=== PATIENT | female | born 1965 | race Caucasian/White ===

== ENCOUNTER 2019-03-30 09:12 | Outpatient (CLI) | payer BC, SELFPAY | END 2019-03-30 09:13 | disposition home or self-care (01) | LOC: ANHAUDIO 09:14 | PROVIDERS: PCP Family Medicine; Visit Provider Otolaryngology | DX: H93.19 Tinnitus, unspecified ear (principal) | CPT/HCPCS: 92552; 92556; 92567 ==

== ENCOUNTER 2022-01-25 02:44 | Emergency (ER) | payer BC, SELFPAY ==
--- NOTE | ~2022-01-25 | CT_ITS ---
EXAMINATION: CT brain wo con DATE: 01/25/2022 04:06 INDICATION: Dizziness. TECHNIQUE: Computed tomography (CT) of the head was performed without intravenous contrast. The dose- length product was 605.33 mGy-cm. Automated exposure control and iterative reconstruction technique w ere employed. COMPARISON: CT dated 01/25/2022 FINDINGS: No acute intracranial hemorrhage, infarction, mass or mass effect. No ventriculomegaly or m idline shift. Basilar cisterns are patent. Paranasal sinuses and mastoids are pneumatized. No depress ed skull fractures. IMPRESSION: 1. No acute intracranial abnormality. Reviewed, dictated and finalized at location A. PMENT OPERATOR/LABORER
--- NOTE | ~2022-01-25 | XR_ITS ---
XR chest 1V portable 01/25/2022 04:01 Indication: Dizziness. Procedure: AP portable chest Comparison: No prior studies for comparison. Findings: Cardiomegaly. Mild pulmonary vascular congestion. No focal pneumonia, effusion or pneumotho rax. There is a Bruce carlita overlying the spine. No acute osseous abnormality. Impression: 1: Cardiomegaly with mild pulmonary vascular congestion. Reviewed, dictated and finalized at location A. ARCH AND DEVELOPMENT TECHNICIAN Impression: 1: Cardiomegaly with mild pulmonary vascular congestion.
[2022-01-25 02:42] VITALS: BP 145/87; PULSE 87; RESP 18; TEMP 37.1; O2SAT 93
--- NOTE | 2022-01-25 02:53 | ED.DIZZY ---
HPI - Dizziness General Chief Complaint: Dizziness Stated Complaint: DIZZINESS Source: RN notes reviewed History of Present Illness HPI Narrative: Patient presents emergency department from home for dizziness. Patient states dizziness began approximately 8 PM this evening. States that it feels like the room is spinning. States the dizziness had improved and then worsened again. States is associate with nausea and vomiting. Patient states that dizziness is improved when her eyes are closed and is worse when she tries to get up and moves her head she denies any numbness or tingling in the extremities she denies any headache she denies any fevers or chills or any other symptoms. States he has not take anything for the symptoms Related Data Home Medications Medication Instructions Recorded Confirmed hydrochlorothiazide 25 mg tablet 25 mg PO DAILY 06/28/21 potassium chloride 20 mEq 20 meq PO DAILY 06/28/21 tablet,extended release Allergies Allergy/AdvReac Type Severity Reaction Status Date / Time No Known Allergies Allergy Verified 01/25/22 02:48 Review of Systems Review of Systems: Gen.: Denies fevers or chills Eyes: Denies eye pain or visual change ENT: Denies congestion Respiratory: Denies shortness of breath or cough CV: Denies chest pain or palpitations GI: Denies abdominal pain or diarrhea. Reports nausea and vomiting Musculoskeletal: Denies back pain or muscle pain Neuro: See HPI Skin: Denies rash Except as documented, all other systems reviewed and negative [facility] Past Medical History Medical History HTN (hypertension) Surgical History Surgical History History of cholecystectomy Family History Family History (Updated 06/28/21 @ 10:24 by Fernanda Yang MA) Other Diabetes mellitus Heart disease High cholesterol Hypertension Social History Social History Smoking status: Never smoker Alcohol intake: never Substance use: never Substance use type: does not use Gender identity (if verbalized by the patient): Female Exam Narrative: APPEARANCE: No acute distress, nontoxic, resting in bed HEENT: Normocephalic, atraumatic, OMM, TMs clear bilaterally EYES: PERRL, EOMI NECK: Supple, nontender, full range of motion without pain, no meningismus RESPIRATORY: No respiratory distress, clear to auscultation bilaterally with no rhonchi wheezing or rales CARDIOVASCULAR: RRR s murmur ABDOMINAL: Soft, nontender, nondistended MUSCULOSKELETAL: Moves all extremities. No clubbing, cyanosis or edema. NEURO: A and O ?3, following commands, speech normal, no facial droop,muscle strength 5 out of 5 bilateral upper and lower extremities, dizziness increased with movement of the head bilaterally SKIN:: Warm, dry. Normal Color PSYCHIATRIC: Normal affect/mood Course Course Emergency Course: Patient states she is feeling much better this time dizziness is resolved able to get up and ambulate in ED with no difficulty Discussed with patient results of workup and diagnosis. Discussed need for follow-up with primary care, proper use of medication, and reasons to return to the emergency department. Patient understands and agrees to current treatment plan Vital Signs Vital signs: Vital Signs Temperature 98.7 F 01/25/22 02:42 Pulse Rate 87 01/25/22 02:42 Respiratory Rate 18 01/25/22 02:42 Blood Pressure 145/87 H 01/25/22 02:42 Pulse Oximetry 93 01/25/22 02:42 Oxygen Delivery Room Air 01/25/22 02:42 Temperature 98.7 F 01/25/22 02:42 Pulse Rate 100 01/25/22 04:25 Respiratory Rate 18 01/25/22 02:42 Blood Pressure 140/96 H 01/25/22 04:25 Pulse Oximetry 93 01/25/22 02:42 Oxygen Delivery Room Air 01/25/22 02:42 MDM - Dizziness MDM Narrative Medical decision making narrative: Patient's vertigo is felt to be
[2022-01-25 03:05] LABS: Basophils Absolute Auto 0.1 K/mm3 (0.0-0.1); Basophils Percent Auto 0.6 % (0.2-1.2); Eosinophils Absolute Auto 0.1 K/mm3 (0-0.3); Eosinophils Percent Auto 0.8 % (0-4.4); Hematocrit 41.9 % (37.0-47.0); Hemoglobin 14.5 g/dL (12.0-15.0); Immature Granulocyte Absolute 0.03 K/mm3 (0.00-0.031); Immature Granulocyte Percent A 0.3 % (0-0.5); Lymphocytes Absolute Auto 1.27 K/mm3 (0.9-3.2); Lymphocytes Percent Auto 13.1 % (18.3-44.2); Mean Corpuscular HGB Conc 34.6 g/dl (32-36); Mean Corpuscular Hemoglobin 31.6 pg (26-34); Mean Corpuscular Volume 91.3 fl (80-100); Mean Platelet Volume 8.9 fl (7.4-10.4); Monocytes Absolute Auto 0.8 K/mm3 (0.1-0.6); Monocytes Percent Auto 7.8 % (2.6-8.5); Neutrophils Absolute Auto 7.5 K/mm3 (1.3-6.7); Neutrophils Percent Auto 77.4 % (45.5-73.1); Platelet Count Result 343 k/mm3 (150-375); Red Blood Count 4.59 M/mm3 (4.2-5.4); Red Cell Distribution Width 12.6 % (11.5-14.5); White Blood Count 9.7 K/mm3 (4.5-10.0)
[2022-01-25] MEDS: SODIUM CHLORIDE 0.9% IV 1,000 ML 999 ML IV CONT (03:06)
[2022-01-25] MEDS: MECLIZINE HCL 25 MG TABLET PO (03:06)
[2022-01-25 03:17] LABS: Alanine Aminotransferase 25 U/L (6-35); Albumin Level 4.1 g/dL (3.5-5.1); Alkaline Phosphatase 73 U/L (38-126); Anion Gap 9 mmol/L (8-16); Aspartate Amino Transferase 45 U/L (14-36); Bilirubin,Total 0.6 mg/dL (0.2-1.3); Blood Urea Nitrogen 12 mg/dL (7-17); Calcium 8.8 mg/dL (8.4-10.2); Carbon Dioxide 28 mmol/L (22-30); Chloride 99 mmol/L (98-107); Estimated CRCL calculation 115 ml/min; Estimated Glomerular Filt Rate > 60; Glucose 156 mg/dL (65-110); Potassium 3.3 mmol/L (3.4-5.0); Sodium 136 mmol/L (137-145)
[2022-01-25 03:29] LABS: Troponin I < 0.012 ng/mL (0.000-0.034)
[2022-01-25 04:25] VITALS: BP 140/96; BP 154/89; PULSE 100
[2022-01-25 04:32] LABS: Appearance Urine Clear (Clear); Bilirubin Urine Negative (Negative); Blood Urine 1+ (Negative); Color Urine Yellow (Yellow); Glucose Urine UA Negative (Negative); Ketones Urine Negative (Negative); Leukocyte Esterase Ur Trace LEU/UL (Negative); Nitrate Urine Negative (Negative); Protein Urine Negative (Negative); Specific Grav Ur 1.015 (1.001-1.035); Urobilinogen Urine 0.2 mg/dL (<2.0); pH Urine 6.5 (5.0-9.0)
[2022-01-25 04:41] LABS: Squamous Epithelial Cell Urine Rare /hpf (Few)
[2022-01-25 04:46] LABS: Add Urine Microscopic? YES
[2022-01-25] MEDS: POTASSIUM CHLORIDE 20 MEQ TABLET PO (06:36)
--- NOTE | 2022-01-25 14:52 | ECG_ITS ---
Measurements Intervals [place] Rate: 86 P: 18 WA: 168 QRS: 12 QRSD: 93 T: -2 QT: 378 QTc: 455 Interpretive Statements SINUS RHYTHM MINIMAL VOLTAGE CRITERIA FOR LVH, CONSIDER NORMAL VARIANT [MEETS CRITERIA IN ONE OF: R(aVL), S(V1), R(V5), R(V5/V6)+S(V1)] NONSPECIFIC T-WAVE ABNORMALITY NO PREVIOUS ECG AVAILABLE FOR COMPARISON Electronically Signed On 01-28-2022 15:16:39 STARS ANALYTICAL LEAD by Ellie Olmstead M.D.
== END 2022-01-25 07:01 | disposition home or self-care (01) ==
PROVIDERS: Emergency Provider Emergency Medicine; PCP Family Medicine
DX: R42 Dizziness and giddiness (principal); I10 Essential (primary) hypertension; R94.31 Abnormal electrocardiogram [ECG] [EKG]
CPT/HCPCS: 36415; 70450; 71045; 80053; 81001; 84484; 85025; 93005; 96360; 99284; A9270; J7030

== ENCOUNTER 2022-04-04 12:14 | Outpatient (CLI) | payer OTHER, SELFPAY ==
[2022-04-04 14:39] LABS: Hematocrit 44.7 % (37.0-47.0); Hemoglobin 14.9 g/dL (12.0-15.0)
[2022-04-04 14:51] LABS: Anion Gap 9 mmol/L (8-16); Blood Urea Nitrogen 11 mg/dL (7-17); Calcium 8.8 mg/dL (8.4-10.2); Carbon Dioxide 32 mmol/L (22-30); Chloride 98 mmol/L (98-107); Estimated Glomerular Filt Rate > 60; Glucose 166 mg/dL (65-110); Potassium 3.6 mmol/L (3.4-5.0); Sodium 139 mmol/L (137-145)
== END 2022-04-04 12:15 | disposition home or self-care (01) ==
PROVIDERS: Anesthesiology; PCP Family Medicine; Visit Provider Student in an Organized Health Care Education/Training Program
DX: Z01.818 Encounter for other preprocedural examination (principal); N95.0 Postmenopausal bleeding; Z79.899 Other long term (current) drug therapy
CPT/HCPCS: 36415; 80048; 85014; 85018

== ENCOUNTER 2022-04-11 02:13 | Day surgery (SDC) | payer OTHER, SELFPAY ==
[2022-03-31 15:48] VITALS: BMI 48.0
--- NOTE | 2022-03-31 15:54 | PC.NURSE ---
Report to the Outpatient Waiting Room, entrance under the green pavilion located off [facility], at time 9:45 on date 04/11/22. Planned Procedure Time: 11:45. Time changes happen often and if your time is changed the preop area will call you the afternoon before. - You and your visitor will be asked to self-screen and do not enter if you have any COVID symptoms. - Only one visitor is requested with a max of two and NO children visitors are allowed at this time. - The patient visitor may be requested to leave or wait in car when not with patient due to distancing restrictions. - A mask is optional within the hospital at this time. Patients may have clear liquids (water, carbonated beverages, clear teas, apple juice) until 3 hours prior to surgery (8:45) with a maximum of 20 ounces. - No food from midnight until time of surgery Take the following medications with a SIP of water the morning of surgery: NONE DO NOT STOP ANY OF YOUR OTHER PRESCRIPTION MEDICATIONS PRIOR TO SURGERY EXCEPT THE FOLLOWING Medications to discontinue per physician: VITAMINS/SUPPLEMENTS Date to take last dose: 04/07/22 Please no make-up, nail cameroonian, hairspray, perfume, deodorant, or body powder the day of surgery. No jewelry (including any body piercings) or valuables the day of surgery, leave them at home. Please take a shower or bath the night before, or the morning of, surgery with an antibacterial soap. Wear comfortable, loose fitting clothing. - Jewelry must be removed prior to entering the operating room. Rings and piercings that are not removed may be cut off. - The hospital will not accept responsibility for valuables. - Please leave all valuables, including medications, at home the day of surgery. If you are going home after surgery, a licensed driver education instructor must drive you home. - NO public transportation without another adult if you receive anesthesia. - We recommend that an adult stay with you for 24 hours following discharge. - We also recommend that you do not drive, make important decision, drink alcoholic beverages, or take any drugs that were not prescribed by your health care provider for at least 24 hours after your discharge time. Follow any additional instructions given to you from your surgeon. If you or anyone in your household have experienced Covid symptoms in the past week, please notify your surgeon or the nurse liaison at the phone number below for possible testing. Telephone instructions given to DEBRA MAYA and asked if any additional questions and then verbalized understanding. Patient advised to call surgeon office or pre surgery nurse liaison [phone] if any additional questions.
[2022-04-11 09:52] VITALS: BP 146/89; PULSE 92; RESP 20; TEMP 36.2; O2SAT 97
--- NOTE | 2022-04-11 10:12 | PM.IMHP ---
H&P: HPI History of Present Illness Date/Time: 04/11/22 10:12 Chief Complaint: postmenopausal bleeding Narrative: ?56-year-old female who presents for postmenopausal bleeding.? Patient reports a history of heavy bleeding.? Patient was placed on oral contraceptive pills in her late 40s.? Patient was? advised to stop her OCPs in her early 50s.? Patient states she? eventually stopped having periods.? patient states that last June she was seen by Dr. Ivan for recurrence of postmenopausal bleeding.? Patient had a pelvic ultrasound done at [facility] that showed an inhomogenous an enlarged endometrial complex.? ? Patient was scheduled to undergo hysteroscopy D&C but had insurance coverage issues.? Patient now has new insurance would like to proceed with D&C. Patient states she continues to have very light sporadic pink spotting. Review of Systems Cardiovascular: Cardiovascular: Denies chest pain, Denies leg edema, Denies palpitations, Denies dyspnea and Denies dyspnea on exertion Respiratory: Respiratory: Denies cough, Denies dyspnea and Denies dyspnea on exertion Gastrointestinal: Gastrointestinal: Denies abdominal pain, Denies constipation, Denies diarrhea, Denies nausea and Denies vomiting Genitourinary: Genitourinary: Denies hematuria, Denies urinary frequency, Denies dysuria, Denies pelvic pain, Denies urinary incontinence and Denies vaginal discharge Neurologic: Reports system reviewed and no additional complaints, except as documented Psychiatric: Psychiatric: Reports no additional psychiatric complaints Endocrine: Endocrine: Denies palpitations PMFSH Past Medical History Medical History HTN (hypertension) Surgical History Surgical History History of cholecystectomy Family History Family History Other Diabetes mellitus Heart disease High cholesterol Hypertension Social History Social History Smoking status: Never smoker Alcohol intake: never Substance use: never Substance use type: does not use Living arrangements: with family Additional living arrangements comments: DAD Occupation/Education: occupation Gender identity (if verbalized by the patient): Female Spiritual care concerns: No Meds Home Medications and Allergies Home Medications Medication Instructions Recorded Confirmed Type hydrochlorothiazide 25 mg tablet 25 mg PO DAILY 06/28/21 04/11/22 History potassium chloride 20 mEq 20 meq PO DAILY 06/28/21 04/11/22 History tablet,extended release meclizine 12.5 mg tablet 12.5 mg PO TID PRN dizziness #10 01/25/22 04/11/22 Rx tabs cholecalciferol (vitamin D3) 125 125 mcg PO DAILY 03/31/22 04/11/22 History mcg (5,000 unit) tablet (Vitamin D3) ergocalciferol (vitamin D2) 1,250 1,250 mcg PO WEEKLY 03/31/22 04/11/22 History mcg (50,000 unit) capsule Allergies Allergy/AdvReac Type Severity Reaction Status Date / Time No Known Allergies Allergy Verified 04/11/22 10:03 Vital Signs Vital Signs - 24 hr 04/11/22 09:52 Temperature 97.1 F L Pulse Rate 92 Respiratory Rate 20 Blood Pressure 146/89 H Pulse Oximetry 97 Oxygen Delivery Room Air Exam Const: General: no acute distress Eyes: EOM: EOMs intact bilaterally Neck: Neck: supple Thyroid: thyroid normal Chest: Breast/axilla inspection: normal inspection of the breasts Breast/axilla palpation: normal palpation of the breasts, normal palpation of the axillae and no axillary lymphadenopathy Resp: Effort & Inspection: normal respiratory effort Auscultation: clear to auscultation bilaterally Cardio: Rate: regular rate Rhythm: regular rhythm GI: Inspection: non-distended GI Palp: Yes Soft to palpation, No Tenderness to palpation present (GI) and No Guarding due to palpation pre
--- NOTE | 2022-04-11 10:13 | WPDHPUPDATE1 ---
History and Physical Update Update Date/Time: 04/11/22 10:13 History and Physical has been reviewed, including an updated exam of the patient. There are NO changes in the patient's condition. Risks, benefits, and alternatives have been discussed and questions answered. Patient agrees to proceed with procedure.
[2022-04-11] MEDS: ACETAMINOPHEN 500 MG TABLET 1000 MG PO (10:16)
[2022-04-11] MEDS: LACTATED RINGERS 1,000 ML 30 ML IV CONT ×2 (10:16→12:22)
--- NOTE | 2022-04-11 11:18 | WPDANESEPPF ---
Anes - Initial Pre Proc Eval Procedure: Operation Date: 04/11/22 11:45 Proposed Procedures p Hysteroscopy, Dilation and Curettage - Chalino York MD Date/Time: 04/11/22 11:18 Surgeon: Chalino York MD Pre Op Diagnosis: Post Menopausal Bleeding Patient Data Age: 57 Gender: F Height: 1.63 m Weight: 128.8 kg Last Vital Signs Temp 36.2 C L 04/11/22 09:52 Pulse 92 04/11/22 09:52 Resp 20 04/11/22 09:52 BP 146/89 H 04/11/22 09:52 Pulse Ox 97 04/11/22 09:52 O2 Del Method Room Air 04/11/22 09:52 Allergies Allergy/AdvReac Type Severity Reaction Status Date / Time No Known Allergies Allergy Verified 04/11/22 10:03 Home Medications Medication Instructions Recorded Confirmed Type hydrochlorothiazide 25 mg tablet 25 mg PO DAILY 06/28/21 04/11/22 History potassium chloride 20 mEq 20 meq PO DAILY 06/28/21 04/11/22 History tablet,extended release meclizine 12.5 mg tablet 12.5 mg PO TID PRN dizziness #10 01/25/22 04/11/22 Rx tabs cholecalciferol (vitamin D3) 125 125 mcg PO DAILY 03/31/22 04/11/22 History mcg (5,000 unit) tablet (Vitamin D3) ergocalciferol (vitamin D2) 1,250 1,250 mcg PO WEEKLY 03/31/22 04/11/22 History mcg (50,000 unit) capsule Patient hx anesthesia problems: none Family hx anesthesia problems: none Results Review: All pre-operative results and documents have been reviewed as part of the pre-operative evaluation. [facility] Past Medical History Medical History (Updated 04/11/22 @ 11:18 by Moncho Srivastava MD) HTN (hypertension) Morbid obesity Surgical History Surgical History History of cholecystectomy Family History Family History Other Diabetes mellitus Heart disease High cholesterol Hypertension Social History Social History Smoking status: Never smoker Alcohol intake: never Substance use: never Substance use type: does not use Living arrangements: with family Additional living arrangements comments: DAD Occupation/Education: occupation Gender identity (if verbalized by the patient): Female Spiritual care concerns: No Anes - Eval Final PreProcedure Day of Procedure 04/11/22 11:18 Patient weight: morbidly obese Heart: regular rate and rhythm Lungs: clear to auscultation Airway: Mallampati scale class II Neurological: alert and oriented Last oral intake: >/= 8 hours ASA classification: III Emergent: no Anesthesia type and monitoring: general GIVS and standard monitoring Results Review: All pre-operative results and documents have been reviewed as part of the pre-operative evaluation. Informed Consent: The patient's anesthetic plan and its attendant risks and benefits were discussed with the patient/family/POA. Questions were solicited and answers provided to the satisfaction of the patient/family/POA.
[2022-04-11] MEDS: LIDOCAINE HCL 1% LOCAL INJ 20 ML VIAL 10 ML INFILTRATE (12:01)
--- NOTE | 2022-04-11 12:18 | W.PM.PROC2 ---
Procedure Note - Detailed Date of Procedure 04/11/22 Pre-op Diagnosis Post Menopausal Bleeding thickened endometrium Post-op Diagnosis Same Procedure Performed paracervical block hysteroscopy dilation & curettage Surgeon Chalino York MD Anesthesia General Indications postmenopausal bleeding and thickened endometrium Findings Thickened endometrium globally, possible endometrial polyp Description of Procedure Luda Leija presents for the above procedure. She was counseled as to the indications, risks, benefits, and alternatives to surgery, with the risks including bleeding, infection, damage to surrounding organs, VTE, and complications of anesthesia. Her verbal and written consent was obtained. PROCEDURE: The patient was taken to the OR and general anesthesia induced. She was prepped and draped in Matheus stirrups with support of the back and bilateral lower extremities. I/O catheterization performed of the bladder. The above findings were noted. Infiltration with 1% lidocaine at the 3 and 9 o'clock cervical positions was performed. A single tooth tenaculum was placed on the anterior lip of the cervix. The cervix was dilated with sequential Alis dilators. Hysteroscopy, using a normal saline medium, was performed and showed the above findings. The endometrial lining was visualized and a globally thickened endometrium was found with abnormal growth of the lining. The Myosure device was then used to remove the tissue and sample the endometrial lining, restoring a normal appearing endometrial cavity. The tissue was sent to pathology. Sharp uterine curettage was then performed and tissue placed on Telfa. The tenaculum was removed and hemostasis was observed. The patient tolerated the procedure well. Sponge, lap, and needle counts were correct. The patient was taken to the recovery room in stable condition. Estimated Blood Loss 5 Urine Output 50 Drains No Packing No Pathology Yes (endometrial curettings ) Complications No immediate complications Condition Stable Disposition PACU [facility] Billing Surgery - Charge Forward: Surgery Billing
[2022-04-11 12:22] VITALS: BP 126/78; PULSE 91; RESP 16; O2SAT 94
[2022-04-11 12:50] VITALS: BP 144/81; PULSE 82; RESP 16; O2SAT 98
[2022-04-11 13:15] VITALS: BP 121/72; PULSE 70; RESP 16
== END 2022-04-11 13:28 | disposition home or self-care (01) ==
PROVIDERS: PCP Family Medicine; Visit Provider Student in an Organized Health Care Education/Training Program
PROC: 0U5B8ZZ Destruction of Endometrium, Via Natural or Artificial Opening Endoscopic (ICD-10-PCS; CPT 58563; principal; 2022-04-11 11:45)
DX: C54.1 Malignant neoplasm of endometrium (principal); N95.0 Postmenopausal bleeding; I10 Essential (primary) hypertension; E66.01 Morbid (severe) obesity due to excess calories; Z68.42 Body mass index [BMI] 45.0-49.9, adult
CPT/HCPCS: 58558; 88305; A9270; J2250; J2704; J3010; J7030; J7120

== ENCOUNTER 2023-03-25 00:26 | Day surgery (SDC) | payer OTHER, SELFPAY ==
[2023-03-16 09:54] VITALS: BMI 47.2
--- NOTE | 2023-03-23 12:52 | SUR.PREOP ---
Patient called regarding upcoming procedure. Pt updated on arrival date and time. All questions answered.
[2023-03-25 12:29] VITALS: BP 148/82; PULSE 82; RESP 20; TEMP 36.3; O2SAT 97
[2023-03-25] MEDS: LACTATED RINGERS 1,000 ML 150 ML IV CONT (12:40)
--- NOTE | 2023-03-25 12:41 | PM.HPGS ---
History of Present Illness History of Present Illness Consent: Risks, benefits, and alternatives have been discussed and questions answered. Patient agrees to proceed with procedure. Chief complaint: neoplasm screening Narrative: Luda Leija is a 58 year old female here for screening colonoscopy, last one 7 years ago Review of Systems Constitutional: Constitutional: Denies headache(s) and Denies weakness Eyes: Eyes: Denies blurry vision ENT: Reports Normal hearing present, Denies headache(s) and Denies neck pain Cardiovascular: Cardiovascular: Denies chest pain and Denies dyspnea Respiratory: Respiratory: Denies dyspnea Gastrointestinal: Gastrointestinal: Reports no additional gastrointestinal complaints Genitourinary: Genitourinary: Denies dysuria Musculoskeletal: Musculoskeletal: Denies neck pain Integumentary/Breasts: Skin/Breast: Denies dry skin Neurologic: Reports Normal hearing present, Denies headache(s) and Denies weakness Psychiatric: Psychiatric: Denies anxiety Endocrine: Endocrine: Denies change in body appearance Hematologic/Lymphatic: Hematologic/Lymphatic: Denies easy bleeding Allergic/Immunologic: Allergic/Immunologic: Denies urticaria PMFSH Past Medical History Medical History (Updated 03/25/23 @ 12:42 by Andrez Caldera MD) Colon cancer screening HTN (hypertension) Morbid obesity Surgical History Surgical History History of cholecystectomy Family History Family History Other Diabetes mellitus Heart disease High cholesterol Hypertension Social History Social History Smoking status: Never smoker Alcohol intake: never Substance use: never Substance use type: does not use Living arrangements: with family Additional living arrangements comments: DAD Occupation/Education: occupation Gender identity (if verbalized by the patient): Female Spiritual care concerns: No Meds Home Medications and Allergies Home Medications Medication Instructions Recorded Confirmed Type hydrochlorothiazide 25 mg tablet 25 mg PO DAILY 06/28/21 03/25/23 History potassium chloride 20 mEq 20 meq PO DAILY 06/28/21 03/16/23 History tablet,extended release meclizine 12.5 mg tablet 12.5 mg PO TID PRN dizziness #10 01/25/22 03/16/23 Rx tabs cholecalciferol (vitamin D3) 125 125 mcg PO DAILY 03/31/22 03/25/23 History mcg (5,000 unit) tablet (Vitamin D3) ergocalciferol (vitamin D2) 1,250 1,250 mcg PO WEEKLY 03/31/22 03/25/23 History mcg (50,000 unit) capsule acetaminophen 500 mg tablet 500 mg PO Q6H PRN pain #30 tabs 04/11/22 03/16/23 Rx ibuprofen 600 mg tablet 600 mg PO Q6H PRN pain #30 tabs 04/11/22 03/16/23 Rx Allergies Allergy/AdvReac Type Severity Reaction Status Date / Time No Known Allergies Allergy Verified 03/25/23 12:28 Vital Signs Vital Signs - 24 hr 03/25/23 12:29 Temperature 97.3 F L Pulse Rate 82 Respiratory Rate 20 Blood Pressure 148/82 H Pulse Oximetry 97 Oxygen Delivery Room Air Exam Const: General: comfortable and no acute distress HENMT: Face/Nose/Sinus: Normal nares present Eyes: General: appearance normal, both eyes and all related structures Neck: Neck: no JVD Resp: Auscultation: clear to auscultation bilaterally Cardio: Rate: regular rate Rhythm: regular rhythm GI: Inspection: non-distended GI Palp: Yes Soft to palpation Skin: General skin exam: normal color Neuro: General: gait normal Speech: normal speech Extrem: General: normal to inspection Psych: Mental Status: mental status grossly normal Assessment and Plan Assessment and plan (1) Colon cancer screening: Code(s): Z12.11 - Encounter for screening for malignant neoplasm of colon Status: Acute Assessment and Plan: colonoscopy
--- NOTE | 2023-03-25 12:44 | WPDANESEPPF ---
Anes - Initial Pre Proc Eval Procedure: Operation Date: 03/25/23 13:30 Proposed Procedures p Screening Colonoscopy - Andrez Caldera MD Date/Time: 03/25/23 12:44 Surgeon: Andrez Caldera MD Pre Op Diagnosis: neoplasm screening Patient Data Age: 58 Gender: F Height: 1.63 m Weight: 124.5 kg Last Vital Signs Temp 97.3 F L 03/25/23 12:29 Pulse 82 03/25/23 12:29 Resp 20 03/25/23 12:29 BP 148/82 H 03/25/23 12:29 Pulse Ox 97 03/25/23 12:29 O2 Del Method Room Air 03/25/23 12:29 Allergies Allergy/AdvReac Type Severity Reaction Status Date / Time No Known Allergies Allergy Verified 03/25/23 12:28 Home Medications Medication Instructions Recorded Confirmed Type hydrochlorothiazide 25 mg tablet 25 mg PO DAILY 06/28/21 03/25/23 History potassium chloride 20 mEq 20 meq PO DAILY 06/28/21 03/16/23 History tablet,extended release meclizine 12.5 mg tablet 12.5 mg PO TID PRN dizziness #10 01/25/22 03/16/23 Rx tabs cholecalciferol (vitamin D3) 125 125 mcg PO DAILY 03/31/22 03/25/23 History mcg (5,000 unit) tablet (Vitamin D3) ergocalciferol (vitamin D2) 1,250 1,250 mcg PO WEEKLY 03/31/22 03/25/23 History mcg (50,000 unit) capsule acetaminophen 500 mg tablet 500 mg PO Q6H PRN pain #30 tabs 04/11/22 03/16/23 Rx ibuprofen 600 mg tablet 600 mg PO Q6H PRN pain #30 tabs 04/11/22 03/16/23 Rx Patient hx anesthesia problems: none Family hx anesthesia problems: none Results Review: All pre-operative results and documents have been reviewed as part of the pre-operative evaluation. [facility] Past Medical History Medical History (Updated 03/25/23 @ 12:42 by Andrez Caldera MD) Colon cancer screening HTN (hypertension) Morbid obesity Surgical History Surgical History History of cholecystectomy Family History Family History Other Diabetes mellitus Heart disease High cholesterol Hypertension Social History Social History Smoking status: Never smoker Alcohol intake: never Substance use: never Substance use type: does not use Living arrangements: with family Additional living arrangements comments: DAD Occupation/Education: occupation Gender identity (if verbalized by the patient): Female Spiritual care concerns: No Anes - Eval Final PreProcedure Day of Procedure 03/25/23 12:44 Patient weight: morbidly obese Heart: regular rate and rhythm Lungs: clear to auscultation Airway: Mallampati scale class III Neurological: alert and oriented Last oral intake: >/= 8 hours ASA classification: III Emergent: no Anesthetic plan: proceed Anesthesia type and monitoring: general GIVS and standard monitoring Results Review: All pre-operative results and documents have been reviewed as part of the pre-operative evaluation. Informed Consent: The patient's anesthetic plan and its attendant risks and benefits were discussed with the patient/family/POA. Questions were solicited and answers provided to the satisfaction of the patient/family/POA.
[2023-03-25 13:06] VITALS: BP 115/76; PULSE 80; RESP 18; O2SAT 97
[2023-03-25 13:16] VITALS: BP 140/92; PULSE 75; RESP 18; O2SAT 99
[2023-03-25 13:26] VITALS: BP 141/95; PULSE 73; RESP 18; O2SAT 100
== END 2023-03-25 13:35 | disposition home or self-care (01) ==
PROVIDERS: PCP Family Medicine; Visit Provider Internal Medicine Gastroenterology
PROC: 0DJD8ZZ Inspection of Lower Intestinal Tract, Via Natural or Artificial Opening Endoscopic (ICD-10-PCS; CPT 45378; principal; 2023-03-25 13:30)
DX: Z12.11 Encounter for screening for malignant neoplasm of colon (principal); K57.30 Diverticulosis of large intestine without perforation or abscess without bleeding; K64.8 Other hemorrhoids; I10 Essential (primary) hypertension; E66.01 Morbid (severe) obesity due to excess calories; Z68.42 Body mass index [BMI] 45.0-49.9, adult
CPT/HCPCS: 45378; J2704; J7120

== ENCOUNTER 2024-06-16 15:01 | Outpatient (CLI) | payer OTHER, SELFPAY ==
--- NOTE | ~2024-06-16 | XR_ITS ---
[id number] Ordering provider: Roya Hand, HUMAN RESOURCES VICE PRESIDENT History: . Cervicalgia x 3 mos; no injury . Comparison: None. FINDINGS: VERTEBRAL BODIES: Normal height and alignment. No visible fracture or subluxation. The dens is intact . DISK SPACES: Narrowing of the disc C5-C6 and C6-C7. Multilevel facet joint disease. Multilevel uncove rtebral joint osteoarthritic changes. PARASPINOUS SOFT TISSUES: No prevertebral soft tissue swelling. IMPRESSION: No acute osseous abnormality cervical spine. Multilevel degenerative disc disease. Reviewed, dictated and finalized at location A.
--- OUTSIDE RECORDS SUMMARY | 2024-06-16 16:18 | XMS_ITS | Referral Summary ---
Author Organization [facility] Address [address] [place] [address] Care Team Providers Care Sharepoint Engineer Name Role Phone Martha Brady MD Primary Care Provider + Colette Diallo MD Unavailable [phone] Encounters Date Type Department Care Team Description 05/31/2024 1:20 PM CDT Office Visit [facility] Radiation Oncology [address] [facility] [place] [address] Ebony Hernandez PA Endometrial cancer (HCC) from Last 3 Months Allergies No known active allergies Medications triamcinolone (KENALOG) 0.1 % cream Apply 1 g topically as needed for rash Active potassium chloride ER 20 mEq CR tablet Take 2 tablets (40 mEq total) by mouth manager strategic marketing before breakfast Active hydroCHLOROthia zide (HYDRODIURIL) 25 mg tablet Take 1 tablet (25 mg total) by mouth manager strategic marketing before breakfast Active ergocalciferol (VITAMIN D) 50,000 unit capsule Take 1 capsule (50,000 Units total) by mouth once a week Active clotrimazole 1 % cream Apply 1 Application topically as needed Active meclizine (ANTIVERT) 12.5 mg tablet Take 1 tablet (12.5 mg total) by mouth as needed for dizziness Active cholecalciferol (Vitamin D3) 400 unit capsule Take 1 tablet/capsule (400 Units total) by mouth manager strategic marketing before breakfast Active acetaminophen (TYLENOL) 500 mg tablet Take 2 tablets (1,000 mg total) by mouth every 6 (six) hours as needed for pain 60 tablet 1 3 Active ibuprofen (ADVIL,MOTRIN) 600 mg tablet Take 1 tablet (600 mg total) by mouth every 6 (six) hours as needed for pain 60 tablet 1 3 Active Active Problems Problem Noted Date Diagnosed Date Endometrial cancer 05/28/2022 Cancer Staging:Pathologic:FIGO Stage IB(pT1b, pN0, cM0) - Signed by Moncho Wilson MD PhD on 08/15/2022 Overview (02/10/2024): - Presented with PMB to primary label fuser tender, s/p D&C 03/2022 with pathology showing well-differentiated endometrioid adenocarcinoma FIGO grade 1 with focal squamous differentiation in a background of atypical hyperplasia (pathology slides reviewed at [facility]) - Previous pelvic US showed uterus measuring 7 x 4 x 5 cm - Pap NILM/HPV neg 04/2021 - Continues to have heavy bleeding, on Provera 20 mg daily - S/p RATLH/BSO/SNLD on 07/08 with pathology: Stage 1B MMRP, ER/[place]+ endometrial cancer. AMAN+, [place] nodes negative. - 07/23: Meeting appropriate milestones. DIscussed brachytherapy. REferral placed to radiation oncology - 08/20: Cuff check wnl and meeting milestones. - 01/21: Completed vaginal brachytherapy 10/09. Normal surveillance exam. Discussed recommendation for every 5 year colonoscopy in setting of hx endometrial cancer, patient to schedule with PCP as last colonoscopy was 6 yrs ago. - 04/22/23: normal surveillance exam. Reports benign colonoscopy 1 mo ago with just diverticulosis and internal hemorrhoids. - 07/21: CHANTELLE, normal exam - 02/09: CHANTELLE, normal exam Plan - RTC in 6 months - Colonoscopy with PCP in 5 years (03/2028) Social History Tobacco Use Types Packs/Day Years Used Date Smoking Tobacco: Never Smokeless Tobacco: Never Tobacco Cessation:Counseling Given: Not Answered AUDIT-C Answer Date Recorded Q1: How often do you have a drink containing alcohol? Never 07/08/2022 Q2: How many drinks containi ng alcohol do you have on a typical day when you are drinking? Patient does not drink Q3: How often do you have si x or more drinks on one occasion? Never 07/08/2022 Hunger Vital Sign Answer Date Recorded Within the past 12 months, y ou worried that your food would run out before you got the money to buy more. Patient declined Within the past 12 months, t he food you bought just didn't last and you didn't have money to get more. Patient declined Personal Safety Answer Date Recorded Have you ever been in or are you currently in a harmful physical or emotional relationship or is someone making you feel afraid or unsafe? Denies 07/08/2022 Comments No Sex and Gender Information Value Date Recorded Sex Assigned at Not on file Legal Sex Female 10:32 AM CANDLE WICKER Gender Identity Not on file Sexual Orientation Not on file Last Filed Vital Signs Vital Sign Reading Time Taken Comments Blood Pressure 134/78 02/10/2024 3:43 PM CANDLE WICKER Pulse 93 02/10/2024 3:43 PM CANDLE WICKER Temperature 36.5 C (97.7 F) 02/10/2024 3:43 PM CANDLE WICKER Respiratory Rate 16 04/22/2023 1:09 PM CANDLE WICKER Oxygen Saturation 96% 02/10/2024 3:43 PM CANDLE WICKER Inhaled Oxygen Concentration - - Weight 125.3 kg (276 lb 4.8 oz) 05/31/2024 1:21 PM CDT Height 162.6 cm (5' 4 ) 05/31/2024 1:21 PM CDT Body Mass Index 47.43 05/31/2024 1:21 PM CDT Plan of Treatment Not on file [place] [address] [facility] Care Teams Sharepoint Engineer Relationship Specialty Start Date End Date Martha Brady MD [address] [place] [address] PCP - General Family Medicine 06/23/22 Colette Diallo MD [address] [place] [address] Radiation Oncologist Radiation Oncology 09/03/22
--- OUTSIDE RECORDS SUMMARY | 2024-06-16 16:18 | XMS_ITS | Clinical Summary ---
Author Organization [facility] Address [address] [place] [address] Care Team Providers Care Recovery Advocate Name Role Phone Martha Brady MD Primary Care Provider + Colette Diallo MD Unavailable [phone] Allergies No known active allergies Medications triamcinolone (KENALOG) 0.1 % cream Apply 1 g topically as needed for rash Active potassium chloride ER 20 mEq CR tablet Take 2 tablets (40 mEq total) by mouth audiovisual technician before breakfast Active hydroCHLOROthia zide (HYDRODIURIL) 25 mg tablet Take 1 tablet (25 mg total) by mouth audiovisual technician before breakfast Active ergocalciferol (VITAMIN D) 50,000 [...] 1 tablet/capsule (400 Units total) by mouth audiovisual technician before breakfast Active acetaminophen (TYLENOL) 500 mg [...] (02/10/2024): - Presented with PMB to primary music industry internship, s/p D&C 03/2022 with pathology showing well-differentiated endometrioid adenocarcinoma FIGO grade 1 with focal squamous differentiation in a background of atypical hyperplasia (pathology slides reviewed at [facility]) - Previous pelvic US showed uterus measuring 7 x 4 x 5 cm - Pap NILM/HPV neg 04/2021 - Continues to have heavy bleeding, on Provera 20 mg daily - S/p RATLH/BSO/SNLD on 07/08 with pathology: Stage 1B MMRP, ER/[place]+ endometrial cancer. AMAN+, [place] nodes negative. - 07/23: Meeting appropriate milestones. [...] Colonoscopy with PCP in 5 years (03/2028) Encounters Date Type Department Care Team Description 05/31/2024 1:20 PM CDT Office Visit [facility] Radiation Oncology [address] [facility] [place] [address] Ebony Hernandez PA Endometrial cancer (HCC) from Last 3 Months Medical History Medical History Date Comments Hypertension Social History Tobacco Use Types Packs/Day Years [...] on file Legal Sex Female 10:32 AM FROZEN FOOD DEPARTMENT MANAGER Gender Identity Not on file Sexual Orientation Not on file Obstetrics History Last Filed Vital Signs Vital Sign Reading Time Taken Comments Blood Pressure 134/78 02/10/2024 3:43 PM FROZEN FOOD DEPARTMENT MANAGER Pulse 93 02/10/2024 3:43 PM FROZEN FOOD DEPARTMENT MANAGER Temperature 36.5 C (97.7 F) 02/10/2024 3:43 PM FROZEN FOOD DEPARTMENT MANAGER Respiratory Rate 16 04/22/2023 1:09 PM FROZEN FOOD DEPARTMENT MANAGER Oxygen Saturation 96% 02/10/2024 3:43 PM FROZEN FOOD DEPARTMENT MANAGER Inhaled Oxygen Concentration - - Weight 125.3 kg (276 lb 4.8 oz) 05/31/2024 1:21 PM CDT Height 162.6 cm (5' 4 ) 05/31/2024 1:21 PM CDT Body Mass Index 47.43 05/31/2024 1:21 PM CDT Plan of Treatment Health Maintenance Due Date Last Done Comments Cervical Cancer Screening 1965 Colon Cancer Screening-Colonoscopy 1965 Depression Screening 1965 Hepatitis C Screening 1965 Hepatitis B Screening 1983 Regular Well Visit/Exam 18-64 1983 Zoster Vaccine (1 of 2) 2015 Breast Cancer Screening-Mammogram 05/09/2022 05/09/2021 Covid-19 Vaccine ( season) 2023 05/14/2021, 05/29/2020, 05/06/2020 Influenza Vaccine (Season Ended) 2024 12/23/2022, 12/05/2021, 11/05/2020, Additional history exists DTaP/Tdap/Td Vaccine (2 - Td or Tdap) 03/11/2026 03/11/2016, 02/24/2005 Pneumococcal vaccine <65 Aged Out No longer eligible based on patient's age to complete this topic Insurance [address] Care Teams Recovery Advocate Relationship Specialty Start Date End Date Martha Brady MD [address] [place] [address] PCP - General Family Medicine 06/23/22 Colette Diallo MD [address] [place] [address] Radiation Oncologist Radiation Oncology 09/03/22
--- OUTSIDE RECORDS SUMMARY | 2024-06-16 16:18 | XMS_ITS | CONTINUITY OF CARE DOCUMENT ---
Author Name kady victorialin Address Unknown Organization [facility] Address [address] [place] [address] Phone [phone] Care Team Providers Care Acoustic Sensor Operator Name Role Phone Shadi Nair MD Unavailable [phone] CHARLETTE PARKER MD Unavailable CHARLETTE PARKER MD Unavailable PROBLEMS Condition Status Date Provider Notes Leg pain, left active Hui Turpin Venous insufficiency active Nicolas Mchugh Hypertension active Nicolas Mchugh Obesity active Nicolas Mchugh Diastolic dysfunction active Deng Meier ENCOUNTERS Date Type Provider Location Encounter Diag nosis 1 - 1 In-person encounter Office Visit Shadi Nair MD [facility] Diastolic dysfunction 9 - 9 In-person encounter Office Visit Shadi Nair MD [facility] Venous insufficiencyHypertensionObesity VITAL SIGNS Date Observation Value Provider Body Mass Index (Ratio) 47.03 kg/m2 Zev Mariee blood pressure, diastolic 80 mm[Hg] Va oswaldo [place] blood pressure, systolic 128 mm[Hg] Mallory donny Miki blood pressure, cuff size large Va lersalena Miki weight E&M 274 [lb_av] Agnes Miki pulse rate 78 /min Agnes Miki oxygen saturation, oximetry 96 % Agnes [place] respiratory rate E&M 12 /min Agnes [place] height E&M 64 [in_i] Agnes [place] Body Mass Index (Ratio) 47.54 kg/m2 Haim as [place] blood pressure, diastolic 89 mm[Hg] Li nkLogic blood pressure, systolic 129 mm[Hg] Radha kLogic blood pressure, cuff size regular Ja rr blood pressure, diastolic 89 mm[facility]Hg[facility], [facility] 129 mm[Hg] Jar ret pulse rate 84 /min Jarocho y height E&M 64 [in_i] Jarocho y oxygen saturation, oximetry 96 % Jarocho respiratory rate E&M 14 /min Jarocho weight E&M 277 [lb_av] Jarocho y ALLERGIES No Known Drug Allergies RESULTS Date Observation Value Provider Reference Range Interpretation Location pro brain natriuretic peptide <36 pg/mL [facility] 0-287 calcium, serum 9.4 mg/dL [facility] 8.7-10.2 carbon dioxide, venous blood 27 mmol/L [facility] 20-29 chloride, serum 99 mmol/L [facility] 96-106 potassium, serum 4.0 mmol/L [facility] 3.5-5.2 sodium, serum 141 mmol/L [facility] [phone]/07/24 urea nitrogen/creatini ne ratio, serum 13 [facility] 9-23 creatinine, serum 0.70 mg/dL [facility] 0.57-1.00 urea nitrogen, blood 9 mg/dL [facility] 6-24 blood glucose, random 118 mg/dL [facility] 70-99 High HISTORY OF MEDICATION USE Medication Status Instructions Dates Provider Indications Com ments Vitamin D3 25 mcg (1,000 unit) tablet active 1 pill daily Agnes Miki furosemide 20 mg tablet completed Take 1 tablet by mouth once a day as needed swelling - Agnes Miki hydrochlorothiazide 25 mg tablet active TAKE 1 TABLET BY MOUTH EVERY DAY Klor-Con M20 20 mEq tablet,ER particles/crystals active Take 2 tablet by mouth once a day Vitamin D2 1,250 mcg (50,000 unit) capsule completed - ergocalciferol (vitamin D2) 1,250 mcg (50,000 unit) capsule active TAKE 1 CAPSULE BY MOUTH ONCE WEEKLY SOCIAL HISTORY Date Observation Value Provider smoking status Never smoker Deng lozada smoking status Never smoker INSURANCE PROVIDERS Payer name Policy type / Coverage type [place] red green party ID PATSY MEDICAID (2) Medicaid [id number] ADVANCE DIRECTIVES Name Date DISCUSSED - NO DECISION MADE TREATMENT PLAN Date Name Performer Cardiology: B P today: 128/80 P rior BP: 129/89 (08/12/2023) Labs Reviewed: C reat: 0.70 (09/16/2023) The following medications were removed from the medication list: Furosemide 20 Mg Tablet (Furosemide) ..... Take 1 tablet by mouth once a day as needed swelling Her updated medication list for this problem includes: Hydrochlorothiazide 25 Mg Tablet (Hydrochlorothiazide) ..... Take 1 tablet by mouth every day This visit has been a part of the consistent, comprehensive, and ongoing management of the chronic medical condition(s) listed above for the patient. Deng Mariee Cardiology Degn Mariee Cardiology:Arterial duplex was normal. Pt reports legs are feeling much better and does not want to proceed with AIF intervention. Pt also does not want to take lasix as she prefers to stay on HCTZ. Deng Mariee Cardiology:Echo show ed normal EF with evidence of Diastolic dysfunction Deng Mariee Cardiology:R/o arterial claudica tion with PRINCE Nicolas Mchugh Cardiology Nicolas Mchugh Cardiology: H er updated medication list for this problem includes: Furosemide 20 Mg Tablet (Furosemide) ..... Take 1 tablet by mouth once a day as needed swelling Hydrochlorothiazide 25 Mg Tablet (Hydrochlorothiazide) ..... Take 1 tablet by mouth every day BP today: 129/89 Nicolas Mchugh Cardiology:Advised c ompression and diuretic use prior to intervention CONCLUSIONS: 1 . No evidence of a deep vein thrombosis of the left lower extremity. 2 . Significant venous insufficiency of the left great saphenous vein. E lectronically Signed By: Catie Jones MD 2 024-07-28 08:27:21 CDT Nicolas Mchugh Date Name Arterial Duplex Bi-L ower EX Complete Echo PROBNP, N TERMINAL BASIC METABOLIC PANE L W/EGFR Venous Doppler Unila teral LLE HISTORY OF PROCEDURES Procedure Date Procedure Name Provider Procedure Notes S tatus Complex e/m visit add on Shadi Nair MD completed EKG Shadi Nair MD completed
== END 2024-06-16 15:02 | disposition home or self-care (01) ==
PROVIDERS: PCP Family Medicine; Visit Provider Nurse Practitioner Family
DX: M50.322 Other cervical disc degeneration at C5-C6 level (principal); M50.323 Other cervical disc degeneration at C6-C7 level
CPT/HCPCS: 72040

== ENCOUNTER 2024-06-30 09:41 | Outpatient (CLI) | payer OTHER, SELFPAY ==
--- NOTE | ~2024-06-30 | US_ITS ---
US abdomen complete EXAMINATION: US Abdomen Complete INDICATION: Hiatal hernia. Gastroesophageal reflux. PROCEDURE: Realtime High Resolution abdomen ultrasound. COMPARISON: CT dated 01/06/2016 FINDINGS: Gallbladder is surgically absent. Common bile duct measures 4 mm. Liver echotexture is diffusely increased, consistent with fatty infiltration. Normal directional flow in the portal vein. Pancreas is not well visualized, although grossly unremarkable. Visualized aspects of the aorta and IVC are not adequately visualized. Portal vein is patent. No sono graphic Vaughn's sign indicated by the technologist. Renal echotexture is normal bilaterally without hydronephrosis, contour deforming mass or renal stone. Right kidney measures 11.5 cm. Left kidney pawan sures 11.4 cm. IMPRESSION: 1: Fatty infiltration of the liver. Reviewed, dictated and finalized at location A.
--- OUTSIDE RECORDS SUMMARY | 2024-06-30 09:58 | XMS_ITS | CONTINUITY OF CARE DOCUMENT ---
Author Name kady victorialin Address Unknown Organization [facility] Address [address] [place] [address] Phone [phone] Care Team Providers Care Sales & Service Associate Name Role Phone Shadi Nair MD Unavailable [phone] CHARLETTE PARKER MD Unavailable CHARLETTE PARKER MD Unavailable [phone] PROBLEMS Condition Status Date Provider Notes Leg pain, left active Hui Turpin Venous insufficiency active Nicolas Mchugh Hypertension active Nicolas Mchugh Obesity active Nicolas Mchugh Diastolic dysfunction active Deng Meier ENCOUNTERS Date Type Provider Location Encounter Diag nosis 1 - 1 In-person encounter Office Visit Shadi Nair MD [facility] Diastolic dysfunction 9 - 9 In-person encounter Office Visit Shadi Nair MD [facility] Venous insufficiencyHypertensionObesity VITAL SIGNS Date Observation Value Provider Body Mass Index (Ratio) 47.03 kg/m2 Zev Mariee blood pressure, diastolic 80 mm[Hg] Va oswaldo Livingston blood pressure, systolic 128 mm[Hg] Mallory donny Miki blood pressure, cuff size large Va lerie Miki weight E&M 274 [lb_av] Agnes Miki pulse rate 78 /min Agnes Miki oxygen saturation, oximetry 96 % Agnes Living[place] respiratory rate E&M 12 /min Agnes [place] height E&M 64 [in_i] Agnes Livingston Body Mass Index (Ratio) 47.54 kg/m2 Haim as [place] blood pressure, diastolic 89 mm[Hg] Li nkLogic blood pressure, systolic 129 mm[Hg] Radha kLogic blood pressure, cuff size regular Ja rr blood pressure, diastolic 89 mm[Hg] [facility], systolic 129 mm[Hg] Jar [...] LinkLogic 3.5-5.2 sodium, serum 141 mmol/L [facility] [phone]/07/24 urea nitrogen/creatini ne ratio, serum 13 [facility] [...] Payer name Policy type / Coverage type [place] red green party ID PATSY MEDICAID (2) Medicaid [id number] ADVANCE DIRECTIVES Name Date DISCUSSED - NO [...] above for the patient. Deng Mariee Cardiology Deng Mariee Cardiology:Arterial duplex was normal. Pt reports [...] great saphenous vein. E lectronically Signed By: Caite Jones MD 2 024-07-28 08:27:21 CDT Nicolas Mchugh Date Name Arterial Duplex Bi-L ower EX Complete Echo PROBNP, N TERMINAL BASIC METABOLIC PANE L W/EGFR Venous Doppler Unila teral LLE HISTORY OF PROCEDURES Procedure Date Procedure Name Provider Procedure Notes S tatus Complex e/m visit add on Shadi Nair MD completed EKG Shadi Nair MD completed
--- OUTSIDE RECORDS SUMMARY | 2024-06-30 09:59 | XMS_ITS | Referral Summary ---
Author Organization [facility] Address [address] [place] [address] Care Team Providers Care Wood Setter Name Role Phone Martha Brady MD Primary Care Provider + Colette Diallo MD Unavailable [phone] Encounters Date Type Department Care Team Description 05/31/2024 1:20 PM CDT Office Visit [facility] Radiation Oncology [address] [facility] [place] [address] Ebony Hernandez PA Endometrial cancer (HCC) from Last 3 Months Allergies No known active allergies Medications triamcinolone (KENALOG) 0.1 % cream Apply 1 g topically as needed for rash Active potassium chloride ER 20 mEq CR tablet Take 2 tablets (40 mEq total) by mouth expressive art therapist before breakfast Active hydroCHLOROthia zide (HYDRODIURIL) 25 mg tablet Take 1 tablet (25 mg total) by mouth expressive art therapist before breakfast Active ergocalciferol (VITAMIN D) 50,000 [...] 1 tablet/capsule (400 Units total) by mouth expressive art therapist before breakfast Active acetaminophen (TYLENOL) 500 mg [...] (02/10/2024): - Presented with PMB to primary scrap separator, s/p D&C 03/2022 with pathology showing well-differentiated endometrioid adenocarcinoma FIGO grade 1 with focal squamous differentiation in a background of atypical hyperplasia (pathology slides reviewed at [facility]) - Previous pelvic US showed uterus measuring 7 x 4 x 5 cm - Pap NILM/HPV neg 04/2021 - Continues to have heavy bleeding, on Provera 20 mg daily - S/p RATLH/BSO/SNLD on 07/08 with pathology: Stage 1B MMRP, ER/[place]+ endometrial cancer. AMAN+, [place] nodes negative. - 07/23: Meeting appropriate milestones. [...] on file Legal Sex Female 10:32 AM SUPERINTENDENT MECHANICAL Gender Identity Not on file Sexual Orientation Not on file Last Filed Vital Signs Vital Sign Reading Time Taken Comments Blood Pressure 134/78 02/10/2024 3:43 PM SUPERINTENDENT MECHANICAL Pulse 93 02/10/2024 3:43 PM SUPERINTENDENT MECHANICAL Temperature 36.5 C (97.7 F) 02/10/2024 3:43 PM SUPERINTENDENT MECHANICAL Respiratory Rate 16 04/22/2023 1:09 PM SUPERINTENDENT MECHANICAL Oxygen Saturation 96% 02/10/2024 3:43 PM SUPERINTENDENT MECHANICAL Inhaled Oxygen Concentration - - Weight 125.3 kg (276 lb 4.8 oz) 05/31/2024 1:21 PM CDT Height 162.6 cm (5' 4 ) 05/31/2024 1:21 PM CDT Body Mass Index 47.43 05/31/2024 1:21 PM CDT Plan of Treatment Not on file [place] [address] [facility] Care Teams Wood Setter Relationship Specialty Start Date End Date Martha Brady MD [address] [place] [address] PCP - General Family Medicine 06/23/22 Colette Diallo MD [address] [place] [address] Radiation Oncologist Radiation Oncology 09/03/22
--- OUTSIDE RECORDS SUMMARY | 2024-06-30 09:59 | XMS_ITS | Clinical Summary ---
Author Organization [facility] Address [address] [place] [address] Care Team Providers Care Calciner Feeder Name Role Phone Martha Brady MD Primary Care Provider + Colette Diallo MD Unavailable [phone] Allergies No known active allergies Medications triamcinolone (KENALOG) 0.1 % cream Apply 1 g topically as needed for rash Active potassium chloride ER 20 mEq CR tablet Take 2 tablets (40 mEq total) by mouth conflict resolution professional before breakfast Active hydroCHLOROthia zide (HYDRODIURIL) 25 mg tablet Take 1 tablet (25 mg total) by mouth conflict resolution professional before breakfast Active ergocalciferol (VITAMIN D) 50,000 [...] 1 tablet/capsule (400 Units total) by mouth conflict resolution professional before breakfast Active acetaminophen (TYLENOL) 500 mg [...] (02/10/2024): - Presented with PMB to primary heating and cooling systems engineer, s/p D&C 03/2022 with pathology showing well-differentiated endometrioid adenocarcinoma FIGO grade 1 with focal squamous differentiation in a background of atypical hyperplasia (pathology slides reviewed at [facility]) - Previous pelvic US showed uterus measuring 7 x 4 x 5 cm - Pap NILM/HPV neg 04/2021 - Continues to have heavy bleeding, on Provera 20 mg daily - S/p RATLH/BSO/SNLD on 07/08 with pathology: Stage 1B MMRP, ER/[place]+ endometrial cancer. AMAN+, [place] nodes negative. - 07/23: Meeting appropriate milestones. [...] Description 05/31/2024 1:20 PM CDT Office Visit [facility] Radiation Oncology [address] [facility] [place] [address] Ebony Hernandez PA Endometrial cancer (HCC) from [...] on file Legal Sex Female 10:32 AM SPECIAL FORCES SENIOR SERGEANT Gender Identity Not on file Sexual Orientation Not on file Obstetrics History Last Filed Vital Signs Vital Sign Reading Time Taken Comments Blood Pressure 134/78 02/10/2024 3:43 PM SPECIAL FORCES SENIOR SERGEANT Pulse 93 02/10/2024 3:43 PM SPECIAL FORCES SENIOR SERGEANT Temperature 36.5 C (97.7 F) 02/10/2024 3:43 PM SPECIAL FORCES SENIOR SERGEANT Respiratory Rate 16 04/22/2023 1:09 PM SPECIAL FORCES SENIOR SERGEANT Oxygen Saturation 96% 02/10/2024 3:43 PM SPECIAL FORCES SENIOR SERGEANT Inhaled Oxygen Concentration - - Weight 125.3 [...] patient's age to complete this topic Insurance [address] Care Teams Calciner Feeder Relationship Specialty Start Date End Date Martha Brady MD [address] [place] [address] PCP - General Family Medicine 06/23/22 Colette Diallo MD [address] [place] [address] Radiation Oncologist Radiation Oncology 09/03/22
--- OUTSIDE RECORDS SUMMARY | 2024-06-30 09:59 | XMS_ITS | Data Portability ---
Author Organization [place] [facility] [employer], Main Office Address [address] [place] [address] Care Team Providers Care Meat Slicer Name Role Phone WIL MENDOZA ZACHARY Primary Care Provider [phone] WIL MENDOZA ZACHARY Referring Provider [phone] Assessment Encounter Date Assessment Date Assessment LastModified by Organization Details LastModified Time 07/09/2023 07/09/2023 This note is dictated and transcribed by [employer]. [employer] variances may occur. Despite proofreading, typographical errors may occur. Occasional wrong-word or 'opuks-k-uksi' substitutions may have occurred due to the inherent limitations of voice recording. Read the chart carefully and recognize, using context, where substitutions have occurred. Not available 07/09/2023 16:48:12 07/16/2023 07/16/2023 This note is dictated and transcribed by [employer]. [employer] variances may occur. Despite proofreading, typographical errors may occur. Occasional wrong-word or 'hgqea-m-ebtk' substitutions may have occurred due to the inherent limitations of voice recording. Read the chart carefully and recognize, using context, where substitutions have occurred. Not available 07/16/2023 15:54:22 09/17/2023 09/17/2023 This note is dictated and transcribed by [employer]. [employer] variances may occur. Despite proofreading, typographical errors may occur. Occasional wrong-word or 'lylzh-x-wimm' substitutions may have occurred due to the inherent limitations of voice recording. Read the chart carefully and recognize, using context, where substitutions have occurred. Not available 09/17/2023 16:34:08 11/19/2023 11/19/2023 This note is dictated and transcribed by [email or web address]. [employer] variances may occur. Despite proofreading, typographical errors may occur. Occasional wrong-word or 'ozlid-i-tpsp' substitutions may have occurred due to the inherent limitations of voice recording. Read the chart carefully and recognize, using context, where substitutions have occurred. Not available 11/19/2023 14:56:26 Plan of Treatment Reminders Order Date Submit Date Provider Last Modified By Organization Details Last Modified Time Details Appointments Physical/ Annual Wellness 30 2024 01:30P Jessica Hand NP Not available Not available Not available Lab JOSE + rf (antinucl ear antibodie s + rheumatoi d factor), quantitat indigo, serum 2023 024 [facility] (Lab), [address] [place], [address], 12/31/2023 08:36:43 ESR (erythroc yte sedimenta tion rate), blood 2023 024 [facility] (Lab), [address] [place], [address], 12/31/2023 08:36:44 C-reactiv e protein, quantitat indigo, serum or plasma 2023 024 [facility] (Lab), [address] [place], [address], 12/31/2023 08:36:44 uric acid, serum or plasma 2023 024 [facility] (Lab), [address] [place], [address], 12/31/2023 08:36:44 dsDNA Ab, serum 2023 024 [facility] (Lab), [address] [place], [address], 12/31/2023 08:36:44 scleroder ma ([id number]) Ab, serum 2023 024 [facility] ([facility]), [address] [place], [address], 12/31/2023 08:36:44 Referral None recorded. Procedures None recorded. Surgeries None recorded. Imaging XR, cervical spine, 2 or 3 view [address], [facility], [place], [address], 06/08/2024 16:35:34 US, abdomen, complete - Please call patient to schedule. [address], [facility] [address], [place], [address], 06/08/2024 16:35:33 Medication Orders Vitamin D2 1,250 mcg (50,000 unit) capsule 2024 025 [facility] [id number] In [facility], [address] [place] [address], [address], 05/04/2024 15:27:05 hydrochlo rothiazid e 25 mg tablet 2024 025 [facility] [address] In [facility], [address] [place] [address], [address], 05/04/2024 15:27:05 Klor-Con M20 mEq tablet,ex tended release 2024 025 [facility] [address] In [facility], [address] [place] [address], [address], 05/04/2024 15:27:04 Medrol (David) 4 mg tablets in a dose pack 2023 [address]24 [facility] [id number], [address], 07/16/2023 15:35:50 Patient TargetsNo targets recorded. Patient Instructions Encounter Date Encounter Id Patient Instructions Last Modified By Organization Details Last Modified Time 07/09/2023 [id number] prediabetes: car e instructions Not available 07/15/2023 10:18:07 Reason for Referral None Reported. Results Created Date Observation Date Name Description Value Unit Range Abnormal Flag Note LastModifiedBy Organization Detail LastModifiedTime 06/16/19 24 06/16/2023 XR, lumba r spine [facility] [address] [address] Patijose betancourt Name: LUDA MAYA Access ion #: [id number] Sex: F : 1965 1 Dictat ed By: Vaibhav Araiza Attend ing Physic dm: KARYN SHAY Orderi Physic dm: KARYN SHAY Exam Date: 2023 16:03 PM Exam Name: XR L SPINE 4V+ Admitt ing Diagno sis(es ): INDICA TION: low back pain COMPAR IDALIA: None TECHNI QUE: 4 views of the lumbar spine were obtain ed. FINDIN GS: The lumbar verteb ral alignm ent is normal . Surgic al carlita seen in the spine. Scolio tic curvat ure of the spine. No acute fractu re, verteb ral compre ssion deform ity or aggres sive osseou s lesion s. The parave rtebra l soft tissue s are grossl y unrema rkable . IMPRES MATILDE: No acute fractu re. Electr onical ly Signed by: Vaibhav Araiza at 2023 17:26: 20 PM Page 1 [email or web address] [facility] (Imaging) [address] [place], [address], 07/01/2023 15:43:11 06/27/19 24 06/26/2023 scree kyra breas t mick, bilat [facility] [address] [place] [address] [phone] Patien t Name: LUDA MAYA Access ion #: [id number] Sex: F : 1965 1 Dictat ed By: Maria Teresa Wynn Attend ing Physic dm: KARYN SHAY Orderi ng Physic dm: KARYN SHAY Exam Date: 2023 14:19 PM Exam Name: MG SCRN BREAST MICK BILAT Admitt ing Diagno sis(es ): SCREEN ING MAMMOG GRANT WITH TOMOSY NTHESI S: REASON FOR EXAM: Screen ing mammog grant COMPAR IDALIA: 23 TECHNI QUE: Bilate ral CC and MLO views obtain ed. Images were obtain ed using a Digita l Tomosy nthesi s Unit. Standa rd 2D and 3D Tomosy nthesi s images were review ed. FINDIN GS: BREAST COMPOS ITION: There are scatte red areas of fibrog landul ar densit y in the bilate ral breast s. In the right breast , no asymme trical parenc hymal patter n, rory ectura l distor tion, pleomo rphic microc alcifi cation s or masses . In the left breast , no asymme trical parenc hymal patter n, rory ectura l distor tion, pleomo rphic microc alcifi cation s or masses . IMPRES MATILDE: No findin gs of malign steven. Recomm end annual mammog grant. BIRADS : 1 - Negati ve Electr onical ly Signed by: Maria Teresa Wynn at 2023 07:52: 44 AM Page 1 [email or web address] [facility] (Imaging) [address] [place], [address], 06/30/2023 10:43:23 06/27/19 24 06/26/2023 MAMMO , scree kyra, digit al, bilat eral No observ ation record ed. [email or web address] [facility] [address] [place], [address], 07/01/2023 15:42:44 07/10/19 24 07/09/2023 XR, foot, 3 or more view [facility] [address] [facility] [place] [address] Patien t Name: LUDA MAYA Access ion #: [id number] Sex: F : 1965 3 Dictat ed By: Vaibhav Araiza Attend ing Physic dm: , Orderi ng Physic dm: , Exam Date: 2023 16:09 PM Exam Name: XR FOOT BILAT 3V Admitt ing Diagno sis(es ): CLINIC AL INDICA TION: BILATE RAL FOOT PAIN TECHNI QUE: 3 radiog raphic views of the bilate ral feet were obtain ed. FINDIN GS/IMP RESSIO N: There is no eviden ce of acute fractu re or disloc ation. The visual ized joint space is well mainta ined. The alignm ent is anatom ical. There is no radiop aque foreig n body. Electr onical ly Signed by: Vaibhav Araiza at 2023 07:06: 37 AM Page 1 [email or web address] [facility] (Imaging) [address] [place], [address], 07/13/2023 09:33:01 07/29/19 24 07/28/2023 US, doppl er, venou s No observ ation record ed. [facility] [address], [place], [address], 09/04/2023 18:01:29 09/23/19 24 09/22/2023 US, doppl er, venou s No observ ation record ed. [email or web address] [facility] ([facility]) [address] [place], [address], 10/01/2023 16:29:17 09/23/19 24 09/22/2023 arter ial study , lower extre mity, compl ete No observ ation record ed. [email or web address] [facility] [address], [place], [address], 10/01/2023 16:29:18 06/17/19 25 06/16/2024 XR, cervi airam spine , 2 or 3 view No observ ation record ed. [email or web address] [facility] [address], [place], [address], 06/20/2024 09:44:02 06/17/19 25 06/16/2024 XR, cervi airam spine , 2 or 3 view No observ ation record ed. [facility] [address] [facility] [address], [place], [address], 06/16/2024 18:52:20 Result Notes None recorded. Problems Name Problem SNOMED Code Status Onset Date Resolution Date Notes Provider Name and Address Organization Details Recorded Time Gastroesop hageal reflux disease 506364671 Active Not Available [facility] 3 13:33:52 Gallstone 944950609 Active Not Available [facility] 3 13:33:52 Osteoarthr itis of finger joint 408767283 Active Not Available [facility] 3 13:33:52 Scoliosis deformity of spine 046762208 Active 2017 Not Available [facility] 3 13:33:52 Onychomyco sis 416509821 Active Not Available [facility] 3 13:33:52 Essential hypertensi on 13945869 Active 2018 Not Available [facility] 3 13:33:52 Prediabete s 025610866 Active 2018 Not Available [facility] 3 13:33:52 Candidiasi s 55796291 Active Not Available [facility] 3 13:33:52 Vitamin D deficiency 30136935 Active 2022 Not Available [facility] 3 13:33:52 Endometria l carcinoma 827609102 Active 2022 Not Available [facility] 3 13:33:52 Mammograph y abnormal 787119682 Active 2022 Not Available [facility] 3 13:33:52 Cough 35223535 Active 2023 Martha Brady MD [address] [facility], [address], [address] , [facility] 4 12:15:18 COVID-19 576999488 Active 2023 Martha Brady MD [address] [facility], [address], [address] , [facility] 4 13:54:52 Pain of multiple joints 05769032 Active 2023 Martha Brady MD [address] [employer], [address] [address], [place], [address] , [facility] 4 14:36:16 Low back pain 182166694 Active 2023 Martha Brady MD [address], [address], [address] , [facility] 4 14:36:27 Bilateral foot joint pain 6797950126576 9109 Active 2023 Martha Brady MD [address], [address], [address] , [facility] 4 14:40:46 Pain in left lower limb 545766858 Active 2023 Martha Brady MD [address] [place], [address], [address] , [facility] 4 14:41:08 Anemia 616937067 Active 2023 Delfina hamm [place] [facility] 4 16:27:50 Arthritis 7183762 Active 2023 Delfina hamm [place] [facility] [place] [facility] 4 16:27:58 Bowel problem 046361729 Active 2023 Delfina hamm [place] [facility] 4 16:28:10 Dizziness 706952527 Active 2023 Delfina Ezekiel null, [facility] 4 16:28:28 Ear problem 339931425 Active 2023 Delfina Ezekiel null, [place] [facility] 4 16:28:36 Disorder of eye 876196004 Active 2023 Delfina Falcon null, [facility] 4 16:28:43 Heartburn 11513619 Active 2023 Delfina Falcon null, [facility] 4 16:28:51 Obesity 098874411 Active 2023 Delfina Ezekiel null, [place] [facility] 4 16:29:25 Skin problem 050140016 Active 2023 Delfina Dodd null, [facility] 4 16:30:15 Pain in both feet 2380633551891 9102 Active 2023 Gustavo John DPM [address], [address], [place], [address] , [facility] 4 16:48:48 Acquired metatarsus adductus of bilateral feet 8492696476279 02 Active 2023 Gustavo John DPM [address], [address], [place], [address] , [facility] 4 15:53:51 Localized, primary osteoarthr itis of the ankle and/or foot 505087566 Active 2023 Gustavo John DPM [address], [address], [place], [address] , [facility] 4 15:54:00 Morbid obesity 221388536 Active 2023 Gustavo John DPM [address], [address], [place], [address] , [facility] 4 15:54:54 Fatigue 23556885 Active 2023 Gustavo John DPM [address], [address], [place], [address] , [facility] [employer] [facility] [employer] [facility] 4 16:30:23 Rheumatoid arthritis 10879291 Active 2023 Gustavo John DPM [address], [address], [place], [address] , [facility] [employer] [facility] [employer] [facility] 4 16:31:10 Hiatal hernia 14924243 Active 2024 WIL Vidal [address], [address], [place], [address] , [facility] [employer] [facility] [employer] [facility] [employer] 5 15:22:10 Hiatal hernia with gastroesop hageal reflux 621006039 Active 2024 WIL Vidal [address], [address], [place], [address] , [facility] [employer] [facility] [employer] 5 15:22:40 Neck pain 57581726 Active 2024 WIL Vidal [address], [address], [place], [address] , [employer] [facility] [employer] 5 15:24:09 Degenerati on of cervical interverte bral disc 67258068 Active 2024 WIL Vidal [address], [address], [place], [address] , [employer] [facility] [employer] 5 09:44:34 Notes:BACK/NECK PROBLEMS, RA DIATION DUE TO CANCER, USE OF NSAIDS Problem Notes None recorded. Procedures Surgical History Date Name Laterality Status Provider Name and Address Organization Details Recorded Time 03/25/19 24 Colonoscopy completed Willard Elam RN [facility] [employer] [facility] 03/25/2023 14:31:02 07/09/19 23 total hysterectomy with removal of both tubes and ovaries completed Martha Brady MD [address], [address], [place], [address], [facility] [employer] [facility] [employer] [facility] 06/16/2023 14:15:25 08/16/19 17 colonoscopy completed Not Available [facility] 04/23/2022 01:12:49 02/25/19 17 laparoscopic cholecystectomy completed Not Available [facility] 04/23/2022 01:12:49 Imaging Results Imaging Date Name Status LastModified by Nafisa malcolm Details LastModified Time 06/16/2023 XR, lumbar spine completed [address] (Imaging) [address] [place], [address], 07/01/2023 15:43:11 06/26/2023 screening breast mick, bilat completed [facility] (Imaging) [address] [place], [address], 06/30/2023 10:43:23 06/26/2023 MAMMO, screening, digital, bilateral completed [address] [place], [address], 07/01/2023 15:42:44 07/09/2023 XR, foot, 3 or more view completed [email or web address] [facility] (Imaging) [address] [place], [address], 07/13/2023 09:33:01 07/28/2023 US, doppler, venous completed [facility] [address], [place], [address], 09/04/2023 18:01:29 09/22/2023 US, doppler, venous completed [address] ([facility]) [address] [place], [address], 10/01/2023 16:29:17 09/22/2023 arterial study, lower extremity, complete completed [address] [facility] [address], [place], [address], 10/01/2023 16:29:18 06/16/2024 XR, cervical spine, 2 or 3 view completed [email or web address] [place] [address], [place], [address], 06/20/2024 09:44:02 06/16/2024 XR, cervical spine, 2 or 3 view completed [email or web address] [address], [place], [address], 06/16/2024 18:52:20 Procedure Notes None recorded. Medical Equipment None Reported. Allergies No known drug allergies Medications Name Sig Start Date Stop Date Status Note LastModified by Organization Details LastModified Time cyclobenzap rine 10 mg tablet Take 1 tablet 3 times a day by oral route as needed. active Not Available Not Available No t Available medroxyprog esterone 10 mg tablet TAKE TWO TABLETS BY MOUTH ONCE DAILY FOR 1 MONTH 06/15 completed Not Available Not Available Not Available neomycin-po lymyxin-hyd rocort 3.5 mg/mL-10,00 0 unit/mL-1 % ear solution 05/02 completed Not Available Not Available Not Available lisinopril 20 mg-hydrochl orothiazide 12.5 mg tablet TAKE 1 TABLET BY MOUTH ONCE DAILY 08/02 completed 1/2 tab po qday MK Not Available Not Available Not Available azithromyci n 250 mg tablet TAKE 2 TABLETS BY MOUTH TODAY, THEN TAKE 1 TABLET DAILY FOR 4 DAYS DIRECTED 06/15 completed Not Available Not Available Not Available ranitidine 300 mg tablet Take 1 tablet every day by oral route. active Not Available Not Available No t Available meclizine 12.5 mg tablet Take 1 tablet as needed by oral route. active Not Available Not Available No t Available acetaminoph en 500 mg tablet TAKE 2 TABLETS (1,000 MG TOTAL) BY MOUTH EVERY 6 HOURS NEEDED FOR PAIN 06/15 completed Not Available Not Available Not Available triamcinolo ne acetonide 0.1 % topical cream APPLY A THIN LAYER TO THE AFFECTED AREA(S) TOPICALLY TWICE A DAY NEEDED active Not Available Not Available No t Available oxycodone-a cetaminophe n 5 mg-325 mg tablet 03/11 completed Not Available Not Available Not Available potassium chloride ER 20 mEq tablet,exte nded release(par t/cryst) TAKE 2 TABLETS BY MOUTH EVERY DAY active Not Available Not Available No t Available dicyclomine 20 mg tablet 01/28 completed Not Available Not Available Not Available ferrous sulfate 325 mg (65 mg iron) tablet TAKE 1 TABLET BY MOUTH EVERY DAY WITH BREAKFAST 06/15 completed Not Available Not Available Not Available megestrol 40 mg tablet TAKE 1 TABLET BY MOUTH TWICE A DAY 06/15 completed Not Available Not Available Not Available omeprazole 20 mg capsule,del ayed release Take 1 capsule every day by oral route. active Not Available Not Available No t Available diclofenac sodium 75 mg tablet,kike yed release Take 1 tablet twice a day by oral route as needed. active Not Available Not Available No t Available hydrochloro thiazide 25 mg tablet TAKE 1 TABLET BY MOUTH EVERY DAY 2024 active Not Available Not Available Not Avai lable ergocalcife rol (vitamin D2) 1,250 mcg (50,000 unit) capsule TAKE 1 CAPSULE BY MOUTH ONE TIME PER WEEK active Not Available Not Available No t Available ibuprofen 600 mg tablet TAKE 1 TABLET BY MOUTH EVERY 6 HOURS NEEDED FOR PAIN 07/08 completed Not Available Not Available Not Available polyethylen e glycol 3350 17 gram/dose oral powder DISSOLVE 17 GRAMS INTO WATER AND DRINK BY MOUTH EVERY DAY 06/15 completed Not Available Not Available Not Available methylpredn isolone 4 mg tablets in a dose pack TAKE 6 TABLETS ON DAY 1 DIRECTED ON PACKAGE AND DECREASE BY 1 TAB EACH DAY FOR A TOTAL OF 6 DAYS 07/15 completed Not Available Not Available Not Available ondansetron 4 mg disintegrat ing tablet 05/02 completed Not Available Not Available Not Available fluticasone propionate 50 mcg/actuati on nasal spray,suspe nsion USE 2 SPRAY(S) IN EACH NOSTRIL ONCE DAILY 06/15 completed Not Available Not Available Not Available clotrimazol e 1 % topical cream APPLY TO THE AFFECTED AND SURROUNDI NG AREAS OF SKIN BY TOPICAL ROUTE 2 TIMES PER DAY IN THE MORNING AND EVENING active Not Available Not Available No t Available neomycin-po lymyxin-hyd rocort 3.5 mg-10,000 unit/mL-1 % ear drops,susp INSTILL 4 DROPS INTO AFFECTED EAR(S) BY OTIC ROUTE 3 TIMES PER DAY 05/02 completed Not Available Not Available Not Available Sprintec (28) 0.25 mg-0.035 mg tablet TAKE DIRECTED 04/20 completed Not Available Not Available Not Available Vitamin D3 active Not Available Not Av ailable Not Available potassium chloride ER 20 mEq tablet,exte nded release Take 1 tablet every day by oral route. 11/06 completed Not Available Not Available Not Available clotrimazol e 1 % topical ointment Apply 1 applicati on twice a day by topical route for 14 days. active Not Available Not Available No t Available Fluvirin 6770-3835 45 mcg (15 mcg x 3)/0.5 mL intramuscul ar suspension 04/25 completed Not Available Not Available Not Available Fluzone Quad (PF) 60 mcg (15 mcg x 4)/0.5 mL IM syringe [facility] 06/10 completed Not Available Not Available Not Available vitamin D3 1,250 mcg (50,000 unit)-vitam in K2 200 mcg capsule Take 1 capsule every day by oral route. 05/04 completed Not Available Not Available Not Available Paxlovid 300 mg (150 mg x 2)-100 mg tablets in a dose pack TAKE DIRECTED 06/15 completed Not Available Not Available Not Available Vitals Date Recorded Body height Body mass index (BMI) Body weight Provider Name and Address Organization Details Last Updated DateTime 07/09/2023 162.56 cm 47.2 kg/m2 721907.9 g Delfina Falcon [place] [employer] [facility] [employer] [facility] 07/09/2023 16:26:26 Date Recorded Heart rate Respiratory rate Oxygen saturation Oxygen saturation in Arterial blood by Pulse oximetry Systolic blood pressure Diastolic blood pressure Provider Name and Address Organization Details Last Updated DateTime 4 76 /min 14 /min 98 % 98 % 115 mm[Hg] 75 mm[Hg] Essie Zamora [employer] [facility] [employer] [facility] 16:28:35 Date Recorded Body height Body mass index (BMI) Body weight Heart rate Respiratory rate Oxygen saturation Oxygen saturation in Arterial blood by Pulse oximetry Systolic blood pressure Diastolic blood pressure Provider Name and Address Organization Details Last Updated DateTime 162.56 cm 47.2 kg/m2 459861. 9 g 96 /min 14 /min 98 % 98 % 118 mm[Hg] 75 mm[Hg] Essie Zamora [employer] [facility] [employer] [facility] 05/23/202 4 15:29:11 Date Recorded Body height Body mass index (BMI) Body weight Heart rate Body temperature Systolic blood pressure Diastolic blood pressure Provider Name and Address Organization Details Last Updated DateTime 4 162.56 cm 47.2 kg/m2 967573. 9 g 86 /min 98.6 [degF] 120 mm[Hg] 80 mm[Hg] Marisol Watkins MA [facility] [employer] [facility] 4 15:03:10 Date Recorded Body height Body mass index (BMI) Body weight Heart rate Respiratory rate Oxygen saturation Oxygen saturation in Arterial blood by Pulse oximetry Systolic blood pressure Diastolic blood pressure Provider Name and Address Organization Details Last Updated DateTime 4 162.56 cm 47.2 kg/m2 964431. 9 g 82 /min 14 /min 98 % 98 % 113 mm[Hg] 73 mm[Hg] Essie Zamora [facility] [employer] [facility] 4 14:40:14 Date Recorded Body height Body mass index (BMI) Body weight Body temperature Heart rate Oxygen saturation Oxygen saturation in Arterial blood by Pulse oximetry Pain severity - 0-10 verbal numeric rating [Score] - Reported Systolic blood pressure Diastolic blood pressure Provider Name and Address Organization Details Last Updated DateTime 5 162.56 cm 47 kg/m2 863518. 31 g 98.1 [degF] 80 /min 94 % 94 % 0 124 mm[Hg] 78 mm[Hg] Destiny Snider MA [facility] [employer] [facility] 5 15:04:58 Social History Question Answer Notes LastModified by Organizat ion Details LastModified Time Tobacco Smoking Status Never Smoker Not Available [employer] 04/23/2022 01:06:48 What Is Your Level Of Alcohol Consumption? None [email or web address] Information not available 06/10/2022 What Is Your Level Of Caffeine Consumption? Moderate [email or web address] Information not available 06/10/2022 In The 14 Days Before Symptom Onset, Have You Had Close Contact With A Laboratory-confir med COVID-19 While That Case Was Ill? No [id number] Information not available 04/23/2022 In The 14 Days Before Symptom Onset, Have You Had Close Contact With A Person Who Is Under Investigation For COVID-19 While That Person Was Ill? No [id number] Information not available 04/23/2022 Are You Currently Employed? No Information not available 05/04/2024 What Type Of Diet Are You Following? REGULAR Information not available 05/04/2024 Have There Been Any Changes To Your Family Or Social Situation? No Information no t available 05/04/2024 Do You Use Insect Repellent Routinely? No Information not available 05/04/2024 Where Do You Live? SingleLevelHouse Information not available 05/04/2024 What Was The Date Of Your Most Recent Tobacco Screening? 05/04/2024 Information not available 05/04/2024 How Many Children Do You Have? -1 Information not available 05/04/2024 Do You Have Any Pets? Yes Information not available 05/04/2024 What Is Your Relationship Status? Single Information not available 05/04/2024 Do You Use Your Seat Belt Or Car Seat Routinely? Yes [email or web address] Information not available 06/10/2022 Do You Have Smoke And Carbon Monoxide Detectors In Your Home? Yes Information not available 05/04/2024 Are You Passively Exposed To Smoke? No Information no t available 05/04/2024 Are There Any Smokers In Your House? No Information not available 05/04/2024 Do You Participate In Social Media? Yes [email or web address] Information not available 06/10/2022 Do You Feel Stressed (tense, Restless, Nervous, Or Anxious, Or Unable To Sleep At Night)? [id number] [email or web address] Information not available 06/10/2022 Do You Use Any Illicit Or Recreational Drugs? No Information not available 06/10/2022 Do You Use Sunscreen Routinely? No Information not available 05/04/2024 Has Tobacco Cessation Counseling Been Provided? No [email or web address] Information not available 06/10/2022 Have You Recently Traveled Abroad? No [id number] Information not available 04/23/2022 Are You Currently In School? Yes Information not available 05/04/2024 Do You Have Any Dietary Restrictions? No Information not available 05/04/2024 Do You Or Have You Ever Used Any Other Forms Of Tobacco Or Nicotine? No [email or web address] Information not available 06/10/2022 Sex: Unknown Functional Status Question Answer Note LastModified by Organizat ion Details LastModified Time What is your exercise level? Occasional Information not available 05/04/2024 Mental Status None recorded. Family History Relationship Description Onset Age of this Age Resolved Age Notes LastModified by Organization Details LastModified Time Father Essential hypertension [id number] Not available 04/23/2022 01:12:51 Father Type 2 diabetes mellitus [id number].555 [id number] Not available 04/23/2022 01:12:51 Father Hyperlipidem ia [id number].036 [id number] Not available 04/23/2022 01:12:51 Father Congestive heart failure [id number].970 [id number] Not available 04/23/2022 01:12:51 Mother Type 2 diabetes mellitus MIGRATION.678 [id number] Not available 04/23/2022 01:12:51 Mother Alzheimer's disease MIGRATION.247 [id number] Not available 04/23/2022 01:12:51 Mother Disorder of thyroid gland thyroi d nodule MIGRATION.281 [id number] Not available 04/23/2022 01:12:52 Unspecified Relation Type 2 diabetes mellitus BUNNY GS Not available 07/09/2023 16:31:12 Unspecified Relation Arthritis BUNYN GS Not available 07/09/2023 16:31:33 Unspecified Relation Essential hypertension BUNNY GS Not available 07/09/2023 16:31:53 Unspecified Relation Blood coagulation disorder PARENT S AND BUNNY G Not available 07/09/2023 16:32:45 Father Arthritis Not available 07/09/2023 16:31:33 Mother Arthritis Not available 07/09/2023 16:31:33 Mother Essential hypertension Not available 16:31:46 Medical History Condition Response ARTHRITIS Y DIZZINESS Y HEARTBURN / REFLUX Y RADIATION / CHEMOTHERAPY Y HYPERTENSION Y CANCER: SPECIFY Y OBESITY Y ANEMIA/BLOOD DISORDER Y USE OF NSAIDS Y BOWEL PROBLEMS Y BACK / NECK PROBLEMS Y Gynecological History Statement/Question Response How many live births 0 Date of Last Colonoscopy Most Recent Bone Density Date of LMP Date of Last Pap Smear Current Control Method Hysterectom y Most Recent Mammogram Obstetrics History GPAL:G 0 P 0 0 0 0 Type Value Multiple Births 0 Full Term 0 Induced 0 Spontaneous 0 Premature 0 Living 0 Ectopics 0 Total 0 Immunizations Vaccine Type Date Status Note Provider Nam e and Address Organization Details Recorded Time influenza, unspecified formulation 3 completed Willard Elam RN [facility], [place] - [facility] [employer] [facility] 12/25/2022 16:35:17 COVID-19, mRNA, LNP-S, PF, 30 mcg/0.3 mL dose 1 completed Not Available [facility] 04/23/2022 01:41:19 COVID-19, mRNA, LNP-S, PF, 30 mcg/0.3 mL dose 1 completed Not Available [facility] 04/23/2022 01:41:19 Td (adult) 6 completed Not Available [facility] 04/23/2022 01:41:19 Influenza, split virus, quadrivalent, PF 9 completed Not Available [facility] 04/23/2022 01:41:20 Influenza, split virus, quadrivalent, PF 8 completed Not Available [facility] 04/23/2022 01:41:20 Influenza, split virus, quadrivalent, PF 7 completed Not Available [facility] 04/23/2022 01:41:20 Tdap 7 completed Not Available [facility] 04/23/2022 01:41:20 Influenza, split virus, quadrivalent, PF 4 completed Not Available [facility] 04/23/2022 01:41:20 Influenza, split virus, quadrivalent, PF 1 completed Not Available [facility] 04/23/2022 01:41:20 Influenza, split virus, quadrivalent, PF 5 completed Not Available [facility] 04/23/2022 01:41:21 Past Encounters Encounter ID Performer Location Encounter Start Date Encounter Closed Date Diagnosis/Indication Diagnosis SNOMED-CT Code Diagnosis ICD10 Code Diagnosis Note [id number] Martha Brady MD [facility] Primary Care [address] [place] [address] 05/02/2020 00:00:00 05/13/2020 21:18:[id number] [facility] Primary Care [place] [address] [place] [address] 08/02/2020 00:00:00 08/02/2020 14:46:[id number] [facility] Primary Care [place] [address] [place] [address] 11/05/2020 00:00:00 11/15/2020 14:27:[id number] [facility] Primary Care [place] [address] [place] [address] 05/06/2021 00:00:00 05/13/2021 11:51:[id number] [facility] Primary Care [place] [address] [place] [address] 07/16/2021 00:00:00 07/19/2021 10:17:[id number] [facility] Primary Care [place] [address] [place] [address] 10/03/2021 00:00:00 10/03/2021 09:07:[id number] [facility] Primary Care [place] [address] [place] [address] 11/18/2021 00:00:00 11/19/2021 07:41:[id number] [facility] Primary Care [place] [address] [place] [address] 06/10/2022 14:49:25 06/10/2022 15:27:44 Adult health examination 300902307 Z00.00 Labs completed 11/18/21, will recheck A1C and Vitamin D. Covid vaccines- recommend boostersFl u vaccine- recommende d each fallTetanu s vaccine- 2017- due 2026 wnlColonos copy- 2017 wnl-repeat 2026Mammog grant- ordered today Recommende d routine eye exams and dental cleanings. Screening mammography 24 141515 Z12.31 Essential hypertension 18986386 I10 Continue to monitor. Prediabetes 825002397 R7 3.03 Recheck labs.(11/18) A1C 6.0 Vitamin D deficiency 347 65204 E55.9 Recheck labs. Endometrial carcinoma 25 0803099 C54.1 She states she was diagnosed with endometria l cancer in march; she has full hysterecto my/lymph node removal scheduled for June, followed by [facility] (Dr. Crum). She has been started on megestrol and iron. [id number] Martha Brady MD [facility] Primary Care [facility] [address] [place] [address] 12/16/2022 14:04:24 12/16/2022 14:28:[id number] [facility] Primary Care [facility] [address] [place] [address] 06/16/2023 14:01:36 06/16/2023 14:57:19 Adult health examination 987384758 Z13.220 colonoscop y 03/25/23 normal repeat 5 years-hx ofmammogra m order givenDEXA normal 2021, repeat 2026Tdap given 2017Did not have chickenpox , no need for shingles vaccineFlu vaccine yearlyCovi d vaccine per cdc recommenda tionssees ob/gyn nurse onc-endome trioid andenocarc inomaCheck fasting labs Screening mammography 24 622700 Z12.31 Endometrial carcinoma 25 2534438 C54.1 Essential hypertension 34145633 I10 Prediabetes 867752437 R7 3.03 Vitamin D deficiency 347 11527 E55.9 Long-term drug therapy 082056097 Z79.899 Pain of mu ltiple joints 63269212 M25.50 Low back pain 238549028 M54.50 Bilateral foot joint pain 1226454113 9950047 M79.671 M79.672 Pain in le ft lower limb 718809700 M79.621 [id number] Gustavo John DPM [facility] [place] [address] [place] [address] 07/09/2023 16:22:36 07/16/2023 15:03:22 Pain in both feet 4695967613 2549892 M79.671 M79.672 obtain xraysobtai n labs from [facility] ind[facility] shoe gear dailyfollo w up in 1-2 weeks Bilateral foot joint pain 7579581196 4815244 M79.671 M79.672 as above Prediabetes 543354524 R7 3.03 a1c - 6.1Continu e control per PCP recommenda tions [id number] Gustavo John DPM [facility] Podiat[facility] [place] [address] [place] [address] 07/16/2023 15:24:39 07/17/2023 10:01:36 Pain in both feet 8253552984 3678602 M79.671 M79.672 recommend [employer] [place] orthoticsr ice therapyno strenuous activityed ucated on supportive shoe gearfollow -up in 2 months 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 6778550942 16883 M21.6X1 M21.6X2 x-rays reviewed Bilateral foot joint pain 8346342400 9273028 M79.671 M79.672 as above Localized, primary osteoarthritis of the ankle and/or foot 111091007 M19.079 right 2nd- 3rd tarsometat arsal joint Morbid obesity 083320677 E66.01 recommend weight loss to help joint pain [id number] Gustavo John DPM [facility] Podiat[facility] [place] [address] [place] [address] 09/17/2023 14:55:16 09/21/2023 11:33:35 Arthritis 3394092 M19.90 Bilateral foot joint pain 2224741103 7791033 M79.671 M79.672 as above [id number] Gustavo John DPM [facility] [place] [address] [place] [address] 11/19/2023 14:32:05 11/23/2023 11:38:46 Pain in both feet 5092802917 8967929 M79.671 M79.672 recommend [employer] [place] orthoticsr ice therapyno strenuous activityed ucated on supportive shoe gearfollow -up As needed [id number] LESLIE Vidal-C [facility] Primary Care [facility] [address] [place] [address] 05/04/2024 14:47:13 05/04/2024 15:27:12 Essential hypertension 04573450 I10 Vitamin D deficiency 347 13974 E55.9 Hypokalemia 53842588 E87 .6 Hiatal her jefferson with gastroesophageal reflux 843128577 K21.9 Neck pain 97994597 M54.2 Health Concerns Section Related Observation LastModified by Organization Detai ls LastModified Time None Recorded Concern Status LastModified by Organization Details LastModified Time None Recorded Advance Directives Directive None Recorded Payers Encounter Date Sequence Insurance Name Policy Number Policy Hernandez Covered Member ID Hernandez Member ID Guarantor Name 07/09/2023 1 [facility] ON OR AFTER 08/23/20 (MEDICAID REPLACEMENT - HMO) Luda Maya [id number] Luda Maya 07/16/2023 1 [facility] ON OR AFTER 08/23/20 (MEDICAID REPLACEMENT - HMO) Luda Maya [id number] Luda Maya 09/17/2023 1 [facility] ON OR AFTER 08/23/20 (MEDICAID REPLACEMENT - HMO) Luda Maya [id number] Luda Maya 11/19/2023 1 [facility] ON OR AFTER 08/23/20 (MEDICAID REPLACEMENT - HMO) Luda Maya [id number] Luda Maya 05/04/2024 1 [facility] ON OR AFTER 08/23/20 (MEDICAID REPLACEMENT - HMO) Luda Maya [id number] Luda Maya Notes Date Note Type Note Provider Name and Address Organization Details Recorded Time 07/09/2023 text/html . Patient is a 58-year-old female who presents to the office with multiple complaints of foot pain. Patient states that she has pain to the plantar right foot which she states is burning to the middle foot. Patient denies any open wounds or injury the foot. Patient states the pain is mostly when she gets up from rest. Patient has a history of back surgery secondary to scoliosis. Patient states this pain has been ongoing for about 3 months she states that she is also having discomfort on the dorsal aspect of her right foot secondary to tingling and numbness. Patient once again denies any injury she states that she wears a lot of open back shoes that slide on. Patient is morbidly obese which her weight is probably a factor in her foot pain. Patient states that her sister has rheumatoid arthritis and she is uncertain whether not she has been treated or tested for arthritis. Patient denies any other complaints. Gustavo John DPM [address], [facility] [address], [place], [address], [employer] 07/15/2023 10:18:20 07/16/2023 text/html . Patient is a 58-year-old female morbidly obese who returns the office for bilateral foot pain. Patient had x-rays which were reviewed with the patient she was found to have arthritis worse to the right foot than left at the tarsometatarsal joints. Patient also has met adductus. Patient was educated on treatment and I recommended that she wear custom orthotics to prefabricated [id number] orthotics. Patient states at this time she does not want custom orthotics and would like to have the prefabricated orthotic route secondary to monetary issues. Patient states that she did take the Medrol Dosepak and it did help with her pain. Patient denies any other complaints. Gustavo John DPM [address], [facility] [address], [place], [address], [place] 07/16/2023 15:55:37 09/17/2023 text/html . Patient is a 58-year-old female who returns the office for follow-up on continued foot pain. Patient states she has multiple areas of pain within her feet. Patient has no one area of pain. Patient states it is several joints of her foot. Patient states when she is walking standing she has pain. Patient is obese but she has not significantly overweight. This could have some factors in the pain in her feet. I did discuss obtaining blood work to rule out arthritis. Patient denies any other complaints. Gustavo John DPM [address], [address], [place], [address], [place] 09/21/2023 09:48:18 11/19/2023 text/html . Patient is a 58-year-old female who returns the office for follow-up on bilateral foot pain. Patient states she is obtained better shoe gear and orthotics and states her pain is resolved. Patient states randomly she will still get sharp pains that are very quick to go away but she does not have any continuous pain like she was having. Patient denies any other complaints. Gustavo John DPM [address], [address], [place], [address], [place] 11/19/2023 14:57:00 05/04/2024 text/html Patient is a 59 year old female that presents to the office for follow up. Patient reports neck pain for awhile , would like to have imaging. Patient reports history of hiatal hernia that is suppose to be check annually. Patient denies symptoms related to hiatal hernia. WIL Vidal [address], [address], [place], [address], [email or web address] 05/17/2024 22:45:37 OBGyn Episode No OBEpisode recorded.
== END 2024-06-30 09:42 | disposition home or self-care (01) ==
PROVIDERS: PCP Family Medicine; Visit Provider Nurse Practitioner Family
DX: K76.0 Fatty (change of) liver, not elsewhere classified (principal); K21.9 Gastro-esophageal reflux disease without esophagitis; K44.9 Diaphragmatic hernia without obstruction or gangrene
CPT/HCPCS: 76700

== ENCOUNTER 2024-09-20 10:51 | Outpatient (CLI) | payer OTHER, SELFPAY ==
--- NOTE | ~2024-09-20 | XR_ITS ---
XR hand RT min 3V 09/20/2024 11:25 Indication: Fifth metacarpal swelling and pain Procedure: 3 views right hand Comparison: 3 views right hand Findings: There is polyarticular osteoarthritis of the first carpometacarpal, MCP and IP joints. Ther e is mild osteoarthritis of the fourth DIP joint. No other fracture or genetic malalignment. No signi ficant soft tissue abnormality. No foreign bodies. There is ulnar negative variance. Impression: 1: Moderate polyarticular osteoarthritis. Reviewed, dictated and finalized at location A. Impression: 1: Moderate polyarticular osteoarthritis.
--- OUTSIDE RECORDS SUMMARY | 2024-09-20 10:58 | XMS_ITS | Referral Summary ---
Author Organization [facility] Address [address] [place] [address] Care Team Providers Care Cork Grinder Name Role Phone Martha Brady MD Primary Care Provider + Colette Diallo MD Unavailable [phone] Encounters Date Type Department Care Team Description 08/10/2024 2:15 PM CDT Office Visit [facility] [address] [place] [address] [facility] [place], [place] [id number] Endometrial cancer (HCC) (Primary Dx) from Last 3 Months Allergies No known active allergies Medications triamcinolone (KENALOG) 0.1 % cream Apply 1 g topically as needed for rash Active potassium chloride ER 20 mEq CR tablet Take 2 tablets (40 mEq total) by mouth rn examiner before breakfast Active hydroCHLOROthia zide (HYDRODIURIL) 25 mg tablet Take 1 tablet (25 mg total) by mouth rn examiner before breakfast Active ergocalciferol (VITAMIN D) 50,000 [...] 1 tablet/capsule (400 Units total) by mouth rn examiner before breakfast Active acetaminophen (TYLENOL) 500 mg tablet Take 2 tablets (1,000 mg total) by mouth every 6 (six) hours as needed for pain 60 tablet 1 3 Active ibuprofen (ADVIL,MOTRIN) 600 mg tablet Take 1 tablet (600 mg total) by mouth every 6 (six) hours as needed for pain 60 tablet 1 3 Active Active Problems Patient Care Coordination No te Formatting of this note migh t be different from the original. 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 AMAN+, [place] nodes negative. - 07/23: Meeting appropriate milestones. 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 Oxygen Saturation 96% 08/10/2024 2:33 PM CDT Inhaled Oxygen Concentration - - Weight 123.7 kg (272 lb 12.8 oz) 08/10/2024 2:33 PM CDT Height 162.6 cm (5' 4) 08/10/2024 2:33 PM CDT Body Mass Index 46.83 08/10/2024 2:33 PM CDT Plan of Treatment Not on file Insurance [facility] [place] [address] [facility] Care Teams Cork Grinder Relationship Specialty Start Date End Date Martha Brady MD [address] [place] [address] PCP - General Family Medicine 06/23/22 Colette Diallo MD [address] [place] [address] Radiation Oncologist Radiation Oncology 09/03/22
--- OUTSIDE RECORDS SUMMARY | 2024-09-20 10:58 | XMS_ITS | Data Portability ---
Author Organization [place] [facility] [employer], Main Office Address [address] [place] [address] Care Team Providers Care Economic Analyst Name Role Phone WIL MENDOZA ZACHARY Primary Care Provider WIL MENDOZA ZACHARY Referring Provider Assessment Encounter Date Assessment Date Assessment LastModified by Organization Details LastModified Time 09/17/2023 09/17/2023 This note is dictated and transcribed by [employer]. Hand Picker variances may occur. Despite proofreading, typographical errors may occur. Occasional wrong-word or '[id number]' substitutions may have occurred due to the inherent limitations of voice recording. Read the chart carefully and recognize, using context, where substitutions have occurred. Not available 09/17/2023 16:34:08 11/19/2023 11/19/2023 This note is dictated and transcribed by [employer]. Hand Picker variances may occur. Despite proofreading, typographical errors may occur. Occasional wrong-word or 'mdioa-w-feoz' substitutions may have occurred due to the inherent limitations of voice recording. Read the chart carefully and recognize, using context, where substitutions have occurred. Not available 11/19/2023 14:56:26 Plan of Treatment Reminders Order Date Submit Date Provider Last Modified By Organization Details Last Modified Time Details Appointments Follow Up 15 2024 10:00A Jessica Hand NP Not available Not available Not available Follow Up 15 2024 01:00P Jessica Hand NP Not available Not available Not available Lab TSH, ultra-sen sitive, serum 2024 025 ANA MARIA [facility], [address], [place], [address], 07/15/2024 09:38:20 vitamin D, 25-hydrox y, total, serum 2024 025 [facility], [address], [place], [address], 07/15/2024 09:38:19 HbA1c (hemoglob in A1c), blood 2024 025 [facility], [address], [place], [address], 07/15/2024 09:38:18 CMP, serum or plasma 2024 025 [facility], [address], [place], [address], 07/15/2024 09:38:16 CBC w/ auto diff 2024 025 [facility], [address], [place], [address], 07/15/2024 09:38:15 lipid panel, serum 2024 025 [facility], [address], [place], [address], 07/15/2024 09:38:17 iron + TIBC + ferritin, serum 2024 025 [facility], [address], [place], [address], 07/15/2024 09:38:14 JOSE + rf (antinucl ear antibodie s + rheumatoi d factor), quantitat indigo, serum 2023 024 [facility] ([facility]), [address] [place], [address], 12/31/2023 08:36:43 ESR (erythroc yte sedimenta tion rate), blood 2023 024 [email or web address] [facility] (Lab), [address] [place], [address], 12/31/2023 08:36:44 C-reactiv e protein, quantitat indigo, serum or plasma 2023 024 [email or web address] [facility] (Lab), [address] [place], [address], 12/31/2023 08:36:44 uric acid, serum or plasma [email or web address] (Lab), [address] [place], [address], 12/31/2023 08:36:44 dsDNA Ab, serum [email or web address] (Lab), [address] [place], [address], 12/31/2023 08:36:44 scleroder ma ([id number]) Ab, serum [email or web address] (Lab), [address] [place], [address], 12/31/2023 08:36:44 Referral None recorded. Procedures None recorded. Surgeries None recorded. Imaging MAMMO, screening , digital, bilateral - Please call patient to schedule. [address] [facility], [address], [place], [address], 07/25/2024 10:25:18 XR, cervical spine, 2 or 3 view [address], [address], [place], [address], 06/08/2024 16:35:34 US, abdomen, complete - Please call patient to schedule. [address], [address], [place], [address], 06/08/2024 16:35:33 Medication Orders Vitamin D2 1,250 mcg (50,000 unit) capsule 2024 025 [facility] [id number] In [facility], [address] [place] [address], [address], 05/04/2024 15:27:05 hydrochlo rothiazid e 25 mg tablet 2024 025 [facility] [id number] In [facility], [address] [place] [address], [address], 05/04/2024 15:27:05 Klor-Con M20 mEq tablet,ex tended release 2024 025 [facility] [id number] In [facility], [address] [place] [address], [address], 05/04/2024 15:27:04 Patient TargetsNo targets recorded. Patient InstructionsNo instructions recorded. Reason for Referral None Reported. Results Created Date Observation Date Name Description Value Unit Range Abnormal Flag Note LastModifiedBy Organization Detail LastModifiedTime 07/15/1907/15/2024 FE+TI BC+FE R iron bind.cap.(TI BC) 292 ug/dL 250-45 0 normal Not Available [facility] ([facility]) [address] [facility], [place], [address], 07/15/2024 09:38:13 07/15/1907/15/2024 FE+TI BC+FE R UIBC 227 ug/dL 131-42 5 normal Not Available [facility] ([facility]) [address] [facility], [place], [address], 07/15/2024 09:38:13 07/15/19 25 07/15/2024 FE+TI BC+FE R iron 65 ug/dL 27-159 normal Not Available [facility] ([facility]) [address] [place], [address], 07/15/2024 09:38:13 07/15/19 25 07/15/2024 FE+TI BC+FE R iron saturation 22 % 15-55 normal Not Available [facility] ([facility]) [address] [place], [address], 07/15/2024 09:38:13 07/15/19 25 07/15/2024 FE+TI BC+FE R ferritin 95 NG/mL 15-150 normal Not Available [facility] ([facility]) [address] [place], [address], 07/15/2024 09:38:13 07/15/19 25 07/15/2024 CBC WITH DIFFE RENTI AL/PL ATELE T WBC 7.5 x10e3 /uL 3.4-10 .8 normal Not Available [facility] ([facility]) [address] [place], [address], 07/15/2024 09:38:15 07/15/19 25 07/15/2024 CBC WITH DIFFE RENTI AL/PL ATELE T RBC 4.71 x10e6 /uL 3.77-5 .28 normal Not Available [facility] ([facility]) [address] [place], [address], 07/15/2024 09:38:15 07/15/19 25 07/15/2024 CBC WITH DIFFE RENTI AL/PL ATELE T hemoglobin 14.8 g/dL 11.1-1 5.9 normal Not Available [facility] ([facility]) [address] [place], [address], 07/15/2024 09:38:15 07/15/19 25 07/15/2024 CBC WITH DIFFE RENTI AL/PL ATELE T hematocrit 44.7 % 34.0-4 6.6 normal Not Available [facility] ([facility]) [address] [place], [address], 07/15/2024 09:38:15 07/15/19 25 07/15/2024 CBC WITH DIFFE RENTI AL/PL ATELE T MCV 95 fL 79-97 normal Not Available [facility] ([facility]) [address] [facility], [place], [address], 07/15/2024 09:38:15 07/15/19 25 07/15/2024 CBC WITH DIFFE RENTI AL/PL ATELE T MCH 31.4 pg 26.6-3 3.0 normal Not Available [facility] ([facility]) [address] [facility], [place], [address], 07/15/2024 09:38:15 07/15/19 25 07/15/2024 CBC WITH DIFFE RENTI AL/PL ATELE T MCHC 33.1 g/dL 31.5-3 5.7 normal Not Available [facility] ([facility]) [address] [place], [address], 07/15/2024 09:38:15 07/15/19 25 07/15/2024 CBC WITH DIFFE RENTI AL/PL ATELE T RDW 12.9 % 11.7-1 5.4 Not Available [facility] ([facility]) [address] [place], [address], 07/15/2024 09:38:15 07/15/19 25 07/15/2024 CBC WITH DIFFE RENTI AL/PL ATELE T platelets 367 x10e3 /uL 150-45 0 normal Not Available [facility] ([facility]) [address] [place], [address], 07/15/2024 09:38:15 07/15/19 25 07/15/2024 CBC WITH DIFFE RENTI AL/PL ATELE T neutrophils 65 % not estab. normal Not Available [facility] ([facility]) [address] [facility] [place], [place], [address], 07/15/2024 09:38:15 07/15/19 25 07/15/2024 CBC WITH DIFFE RENTI AL/PL ATELE T lymphs 20 % not estab. normal Not Available [facility] ([facility]) [address] [facility] [place], [place], [address], 07/15/2024 09:38:15 07/15/19 25 07/15/2024 CBC WITH DIFFE RENTI AL/PL ATELE T monocytes 10 % not estab. normal Not Available [facility] ([facility]) [address] [facility] [place], [place], [address], 07/15/2024 09:38:15 07/15/19 25 07/15/2024 CBC WITH DIFFE RENTI AL/PL ATELE T eos 3 % not estab. normal Not Available [facility] ([facility]) [address] [facility] [place], [place], [address], 07/15/2024 09:38:15 07/15/19 25 07/15/2024 CBC WITH DIFFE RENTI AL/PL ATELE T basos 1 % not estab. normal Not Available [facility] ([facility]) [address] [facility] [place], [place], [address], 07/15/2024 09:38:15 07/15/19 25 07/15/2024 CBC WITH DIFFE RENTI AL/PL ATELE T immature cells MANAGER BANQUET Not Available [facility] ([facility]) [address] [facility] [place], [place], [address], 07/15/2024 09:38:15 07/15/19 25 07/15/2024 CBC WITH DIFFE RENTI AL/PL ATELE T neutrophils (absolute) 4.9 x10e3 /uL 1.4-7. 0 normal Not Available [facility] ([facility]) [address] [place], [address], 07/15/2024 09:38:15 07/15/19 25 07/15/2024 CBC WITH DIFFE RENTI AL/PL ATELE T lymphs (absolute) 1.5 x10e3 /uL 0.7-3. 1 normal Not Available [facility] ([facility]) [address] [facility] [place], [place], [address], 07/15/2024 09:38:15 07/15/19 25 07/15/2024 CBC WITH DIFFE RENTI AL/PL ATELE T monocytes(ab solute) 0.7 x10e3 /uL 0.1-0. 9 normal Not Available [facility] ([facility]) [address] [place], [address], 07/15/2024 09:38:15 07/15/19 25 07/15/2024 CBC WITH DIFFE RENTI AL/PL ATELE T eos (absolute) 0.2 x10e3 /uL 0.0-0. 4 normal Not Available [facility] ([facility]) [address] [place], [address], 07/15/2024 09:38:15 07/15/19 25 07/15/2024 CBC WITH DIFFE RENTI AL/PL ATELE T baso (absolute) 0.1 x10e3 /uL 0.0-0. 2 normal Not Available [facility] ([facility]) [address] [place], [address], 07/15/2024 09:38:15 07/15/19 25 07/15/2024 CBC WITH DIFFE RENTI AL/PL ATELE T immature granulocytes 1 % not estab. Not Available [facility] ([facility]) [address] [place], [address], 07/15/2024 09:38:15 07/15/19 25 07/15/2024 CBC WITH DIFFE RENTI AL/PL ATELE T immature grans (abs) 0.0 x10e3 /uL 0.0-0. 1 Not Available [facility] ([facility]) [address], [place], [address], 07/15/2024 09:38:15 07/15/19 25 07/15/2024 CBC WITH DIFFE RENTI AL/PL ATELE T NRBC MANAGER BANQUET Not Available [facility] ([facility]) [address], [place], [address], 07/15/2024 09:38:15 07/15/19 25 07/15/2024 CBC WITH DIFFE RENTI AL/PL ATELE T hematology comments: MANAGER BANQUET Not Available [facility] ([facility]) [address] [place], [address], 07/15/2024 09:38:15 07/15/19 25 07/15/2024 COMP. METAB OLIC PANEL (14) glucose 103 mg/dL 70-99 above high normal Not Available [facility] ([facility]) [address], [place], [address], 07/15/2024 09:38:16 07/15/19 25 07/15/2024 COMP. METAB OLIC PANEL (14) BUN 11 mg/dL 6-24 normal Not Available [facility] ([facility]) [address] [facility] [place], [address], 07/15/2024 09:38:16 07/15/19 25 07/15/2024 COMP. METAB OLIC PANEL (14) creatinine 0.69 mg/dL 0.57-1 .00 normal Not Available [facility] ([facility]) [address] [facility] [place], [address], 07/15/2024 09:38:16 07/15/19 25 07/15/2024 COMP. METAB OLIC PANEL (14) eGFR 100 mL/mi n/1.7 3 >59 normal Not Available [facility] ([facility]) [address] [facility] [place], [address], 07/15/2024 09:38:16 07/15/19 25 07/15/2024 COMP. METAB OLIC PANEL (14) BUN/creatini ne ratio 16 9-23 normal Not Available [facility] ([facility]) [address] [facility] [place], [address], 07/15/2024 09:38:16 07/15/19 25 07/15/2024 COMP. METAB OLIC PANEL (14) sodium 143 mmol/ L 134-14 4 normal Not Available [facility] ([facility]) [address] [facility], [place], [address], 07/15/2024 09:38:16 07/15/19 25 07/15/2024 COMP. METAB OLIC PANEL (14) potassium 4.3 mmol/ L 3.5-5. 2 normal Not Available [facility] ([facility]) [address] [facility] [place], [place], [address], 07/15/2024 09:38:16 07/15/19 25 07/15/2024 COMP. METAB OLIC PANEL (14) chloride 104 mmol/ L 96-106 normal Not Available [facility] ([facility]) [address] [facility] [place], [address], 07/15/2024 09:38:16 07/15/19 25 07/15/2024 COMP. METAB OLIC PANEL (14) carbon dioxide, total 23 mmol/ L 20-29 normal Not Available [facility] ([facility]) [address] [facility] [place], [address], 07/15/2024 09:38:16 07/15/19 25 07/15/2024 COMP. METAB OLIC PANEL (14) calcium 9.1 mg/dL 8.7-10 .2 normal Not Available [facility] ([facility]) [address] [facility] [place], [address], 07/15/2024 09:38:16 07/15/19 25 07/15/2024 COMP. METAB OLIC PANEL (14) protein, total 6.6 g/dL 6.0-8. 5 normal Not Available [facility] ([facility]) [address] [place], [address], 07/15/2024 09:38:16 07/15/19 25 07/15/2024 COMP. METAB OLIC PANEL (14) albumin 4.0 g/dL 3.8-4. 9 normal Not Available [facility] ([facility]) [address] [facility] [place], [address], 07/15/2024 09:38:16 07/15/19 25 07/15/2024 COMP. METAB OLIC PANEL (14) globulin, total 2.6 g/dL 1.5-4. 5 Not Available [facility] ([facility]) [address] [facility] [place], [address], 07/15/2024 09:38:16 07/15/19 25 07/15/2024 COMP. METAB OLIC PANEL (14) bilirubin, total 0.5 mg/dL 0.0-1. 2 normal Not Available [facility] ([facility]) [address] [place], [address], 07/15/2024 09:38:16 07/15/19 25 07/15/2024 COMP. METAB OLIC PANEL (14) alkaline phosphatase 60 IU/L 44-121 normal Not Available [facility] ([facility]) [address] [place], [address], 07/15/2024 09:38:16 07/15/19 25 07/15/2024 COMP. METAB OLIC PANEL (14) AST (SGOT) 12 IU/L 0-40 normal Not Available [facility] ([facility]) [address] [place], [address], 07/15/2024 09:38:16 07/15/19 25 07/15/2024 COMP. METAB OLIC PANEL (14) ALT (SGPT) 12 IU/L 0-32 normal Not Available [facility] ([facility]) [address] [place], [address], 07/15/2024 09:38:16 07/15/19 25 07/15/2024 LIPID PANEL cholesterol, total 163 mg/dL 100-19 9 normal Not Available [facility] ([facility]) [address] [place], [address], 07/15/2024 09:38:17 07/15/19 25 07/15/2024 LIPID PANEL triglyceride s 73 mg/dL 0-149 normal Not Available [facility] ([facility]) [address] [place], [address], 07/15/2024 09:38:17 07/15/19 25 07/15/2024 LIPID PANEL HDL cholesterol 53 mg/dL >39 normal Not Available [facility] ([facility]) [address] [place], [address], 07/15/2024 09:38:17 07/15/19 25 07/15/2024 LIPID PANEL VLDL cholesterol airam 14 mg/dL 5-40 Not Available [facility] ([facility]) [address] [place], [address], 07/15/2024 09:38:17 07/15/19 25 07/15/2024 LIPID PANEL LDL chol calc ([facility]) 96 mg/dL 0-99 Not Available [facility] ([facility]) [address] [place], [address], 07/15/2024 09:38:17 07/15/19 25 07/15/2024 LIPID PANEL LDL calc comment: MANAGER BANQUET Not Available [facility] ([facility]) [address] [place], [address], 07/15/2024 09:38:17 07/15/19 25 07/15/2024 HEMOG LOBIN A1C hemoglobin A1C 6.4 % 4.8-5. 6 above high normal Predi abete s: 5.7 - 6.4 Diabe kisha: >6.4 Glyce kee contr ol for adult s with diabe kisha: <7.0 Not Available [facility] ([facility]) [address] [facility] [place], [place], [address], 07/15/2024 09:38:18 07/15/1907/15/2024 VITAM IN D, 25-HY DROXY vitamin D, 25-hydroxy 73.0 NG/mL 30.0-1 00.0 Vitam in D defic iency has been defin ed by the Insti tute of [facility] ine and an Endoc rine Socie ty pract ice guide line as a level of serum 25-OH vitam in D less than 20 ng/mL (1,2) . The Endoc rine Socie ty went on to furth er defin e vitam in D insuf ficie ncy as a level betwe en 21 and 29 ng/mL (2). 1. IOM (Inst itute of Medic ine). 2009. Dieta ry refer ence intak es for calci um and D. Rashid barajas [place]: The [facility] . 2. Max osorio MF, Emerson solomon [place], Harjit off-F jameel i BUENO, et al. Evalu ation , treat ment, and preve ntion of vitam in D defic iency : an Endoc rine Socie ty clini airam pract ice guide line. JCEM. 2010; 96(7) :1911 -30. Not Available [facility] ([facility]) [address] [facility], [place], [address], 07/15/2024 09:38:19 07/15/1907/15/2024 TSH RFX ON ABNOR MAL TO FREE T4 TSH 2.400 uIU/m L 0.450- 4.500 normal Not Available [facility] ([facility]) [address] [facility] [place], [place], [address], 07/15/2024 09:38:20 09/23/19 24 09/22/2023 US, doppl er, venou s No observ ation record ed. [address] ([employer]) [address] [place], [address], 10/01/2023 16:29:17 09/23/19 24 09/22/2023 arter ial study , lower extre mity, compl ete No observ ation record ed. [address] [facility] [address], [place], [address], 10/01/2023 16:29:18 06/17/19 25 06/16/2024 XR, cervi airam spine , 2 or 3 view No observ ation record ed. [address], [place], [address], 06/20/2024 09:44:02 06/17/19 25 06/16/2024 XR, cervi airam spine , 2 or 3 view No observ ation record ed. [address], [place], [address], 06/16/2024 18:52:20 07/01/19 25 06/30/2024 imagi ng/di agnos tic resul t No observ ation record ed. [address], [place], [address], 09/20/2024 11:10:19 07/01/19 25 06/30/2024 US, abdom en, compl ete No observ ation record ed. [address], [place], [address], 06/30/2024 16:19:08 Result Notes None recorded. Problems Name Problem SNOMED Code Status Onset Date Resolution Date Notes Provider Name and Address Organization Details Recorded Time Gastroesop hageal reflux disease 290356549 Active Not Available [employer] 3 13:33:52 Gallstone 488718600 Active Not Available [facility] 3 13:33:52 Osteoarthr itis of finger joint 266613459 Active Not Available [facility] 3 13:33:52 Onychomyco sis 939562223 Active Not Available [facility] 3 13:33:52 Candidiasi s 10563428 Active Not Available [facility] 3 13:33:52 Scoliosis deformity of spine 955717649 Active 2017 Not Available [facility] 3 13:33:52 Prediabete s 977441744 Active 2018 Not Available [facility] 3 13:33:52 Essential hypertensi on 81703463 Active 2018 Not Available [facility] 3 13:33:52 Vitamin D deficiency 94778436 Active 2022 Not Available [facility] 3 13:33:52 Endometria l carcinoma 709211603 Active 2022 Not Available [facility] 3 13:33:52 Mammograph y abnormal 580547554 Active 2022 Not Available [facility] 3 13:33:52 Cough 10486518 Active 2023 Martha Brady MD [address], [address] [place] [address], [place], [address] , [employer] [facility] 4 12:15:18 COVID-19 507399163 Active 2023 Martha Brady MD [address], [address] [place] [address], [place], [address] , [employer] [facility] 4 13:54:52 Pain of multiple joints 50613136 Active 2023 Martha Brady MD [address], [place], [address] , [employer] 4 14:36:16 Low back pain 352959115 Active 2023 Martha Brady MD [address], [address], [place], [address] , [employer] [facility] 4 14:36:27 Bilateral foot joint pain 1546963360946 9109 Active 2023 Martha Brady MD [address] [facility] [facility] [address], [place], [address] , [place] [facility] 4 14:40:46 Pain in left lower limb 164252062 Active 2023 Martha Brady MD [address] [facility], [facility] [address], [place], [address] , [place] [facility] 4 14:41:08 Anemia 705370025 Active 2023 Delfina hamm, [place] [facility] 4 16:27:50 Arthritis 1697045 Active 2023 Delfina Falcon null, [place] [facility] 4 16:27:58 Bowel problem 132491091 Active 2023 Delfina Falcon null, [place] [facility] 4 16:28:10 Dizziness 701023856 Active 2023 Delfina Falcon null, [place] [facility] 4 16:28:28 Ear problem 980687569 Active 2023 Delfina Falcon null, [place] [facility] 4 16:28:36 Disorder of eye 484696297 Active 2023 Delfina Falcon null, [place] [facility] 4 16:28:43 Heartburn 12326868 Active 2023 Delfina Falcon null, [place] [facility] 4 16:28:51 Obesity 583304065 Active 2023 Delfina Falcon null, [place] [facility] 4 16:29:25 Skin problem 576144313 Active 2023 Delfina Falcon null, [place] [facility] 4 16:30:15 Pain in both feet 2365814788268 9102 Active 2023 Gustavo John DPM [address], [address], [place], [address] , [employer] [facility] 4 16:48:48 Acquired metatarsus adductus of bilateral feet 8539669684714 02 Active 2023 Gustavo John DPM [address], [address], [place], [address] , [employer] [place] [facility] [employer] [facility] 4 15:53:51 Localized, primary osteoarthr itis of the ankle and/or foot 555064056 Active 2023 Gustavo John DPM [address], [address], [place], [address] , [email or web address] [facility] 4 15:54:00 Morbid obesity 702458731 Active 2023 Gustavo John DPM [address], [address], [place], [address] , [employer] [facility] 4 15:54:54 Fatigue 98670627 Active 2023 Gustavo John DPM [address], [address], [place], [address] , [employer] [facility] 4 16:30:23 Rheumatoid arthritis 62843355 Active 2023 Gustavo John DPM [address], [address], [place], [address] , [email or web address] [facility] 4 16:31:10 Hiatal hernia 87851014 Active 2024 WIL Vidal [address], [address], [place], [address] , [email or web address] [facility] 5 15:22:10 Hiatal hernia with gastroesop hageal reflux 649447403 Active 2024 WIL Vidal [address], [address], [place], [address] , [place] [facility] 5 15:22:40 Neck pain 08608625 Active 2024 WIL Vidal [address], [address], [place], [address] , [facility] [employer] [facility] [employer] [facility] 5 15:24:09 Degenerati on of cervical interverte bral disc 09551149 Active 2024 WIL Vidal [address], [address], [place], [address] , [facility] [employer] [facility] [employer] [facility] 5 09:44:34 Body mass index 40+ - severely obese 992545190 Active 2024 WIL Vidal [address], [address], [place], [address] , [facility] [employer] [facility] Hum [facility] 5 12:37:46 Pain in right hand 7171480378052 09 Active 2024 WIL Vidal [address], [address], [place], [address] , [facility] [employer] [facility] [employer] 5 11:18:09 Notes:BACK/NECK PROBLEMS, RA DIATION DUE TO CANCER, USE OF NSAIDS Problem Notes None recorded. Procedures Surgical History Date Name Laterality Status Provider Name and Address Organization Details Recorded Time 03/25/19 24 Colonoscopy completed Willard Elam RN [facility] [employer] [facility] 03/25/2023 14:31:02 07/09/19 23 total hysterectomy with removal of both tubes and ovaries completed Martha Brady MD [address], [address], [place], [address], [facility] [place] [place] [employer] [facility] 06/16/2023 14:15:25 08/16/19 17 colonoscopy completed Not Available [facility] 04/23/2022 01:12:49 02/25/19 17 laparoscopic cholecystectomy completed Not Available [facility] 04/23/2022 01:12:49 Imaging Results None recorded. Procedure Notes None recorded. Medical Equipment None [...] TAKE 1 TABLET BY MOUTH EVERY DAY active Not Available Not Available No t Available ergocalcife rol (vitamin D2) 1,250 mcg (50,000 [...] Available Not Available No t Available Fluvirin [id number] 45 mcg (15 mcg x 3)/0.5 mL [...] verbal numeric rating [Score] - Reported Systolic And Diastolic Provider Name and Address Organization Details Last Updated DateTime 5 162.56 cm 47 kg/m2 004534. 31 g 98.1 [degF] 80 /min 94 % 94 % 0 124/78 mm[Hg] Destiny Snider MA [facility] [employer] 5 15:04:58 Date Recorded Body height Body mass index (BMI) Body weight Body temperature Heart rate Oxygen saturation Oxygen saturation in Arterial blood by Pulse oximetry Systolic And Diastolic Provider Name and Address Organization Details Last Updated DateTime 5 162.56 cm 47.2 kg/m2 493997. 9 g 97.3 [degF] 76 /min 93 % 93 % 120/74 mm[Hg] RAJIV Benjamin [facility] [employer] 5 12:12:48 Date Recorded Body height Body mass index (BMI) Body weight Heart rate Body temperature Systolic And Diastolic Provider Name and Address Organization Details Last Updated DateTime 4 162.56 cm 47.2 kg/m2 820230. 9 g 86 /min 98.6 [degF] 120/80 mm[Hg] Marisol Watkins MA [facility] [employer] [facility] 4 15:03:10 Date Recorded Body height Body mass index (BMI) Body weight Body temperature Heart rate Oxygen saturation Oxygen saturation in Arterial blood by Pulse oximetry Systolic And Diastolic Provider Name and Address Organization Details Last Updated DateTime 5 162.56 cm 46.2 kg/m2 349923. 35 g 97.2 [degF] 81 /min 95 % 95 % 140/90 mm[Hg] RAJIV Benjamin [place] [facility] 5 11:08:37 Date Recorded Body height Body mass index (BMI) Body weight Heart rate Respiratory rate Oxygen saturation Oxygen saturation in Arterial blood by Pulse oximetry Systolic And Diastolic Provider Name and Address Organization Details Last Updated DateTime 4 162.56 cm 47.2 kg/m2 099872. 9 g 82 /min 14 /min 98 % 98 % 113/73 mm[Hg] Essie Zamora [place] [facility] 4 14:40:14 Social History Question Answer Notes LastModified by Organizat ion Details LastModified Time Tobacco Smoking Status Never Smoker Not Available [employer] 04/23/2022 01:06:48 What Is Your Level Of Caffeine Consumption? Moderate [email or web address] Information not available 06/10/2022 In The 14 Days Before Symptom Onset, Have You Had Close Contact With A Laboratory-confir med COVID-19 While That Case Was Ill? No [id number] Information not available 04/23/2022 In The 14 Days Before Symptom Onset, Have You Had Close Contact With A Person Who Is Under Investigation For COVID-19 While That Person Was Ill? No [id number] Information not available 04/23/2022 What Type Of Diet Are You Following? REGULAR Information not available 05/04/2024 Have There Been Any Changes To Your Family Or Social Situation? No Information no t available 05/04/2024 Do You Use Insect Repellent Routinely? No Information not available 05/04/2024 Where Do You Live? SingleLevelHouse Information not available 05/04/2024 What Was The Date Of Your Most Recent Tobacco Screening? 07/12/2024 [email or web address] Information not available 07/12/2024 How Many Children Do You Have? -1 Information not available 05/04/2024 Do You Have Any Pets? Yes Information not available 05/04/2024 What Is Your Relationship Status? Single Information not available 05/04/2024 Do You Use Your Seat Belt Or Car Seat Routinely? Yes [email or web address] Information not available 06/10/2022 Do You Have Smoke And Carbon Monoxide Detectors In Your Home? Yes Information not available 05/04/2024 Are You Passively Exposed To Smoke? No Information no t available 05/04/2024 Are There Any Smokers In Your House? No Information not available 05/04/2024 Do You Participate In Social Media? Yes [email or web address] Information not available 06/10/2022 Do You Use Sunscreen Routinely? No Information not available 05/04/2024 Has Tobacco Cessation Counseling Been Provided? No Information not available 06/10/2022 Have You Recently Traveled Abroad? No [id number] Information not available 04/23/2022 Are You Currently In School? Yes Information not available 05/04/2024 Do You Have Any Dietary Restrictions? No Information not available 05/04/2024 Sex: Unknown Functional Status Question Answer Note LastModified by Organizat ion Details LastModified Time Do you use any illicit or recreational drugs? No [email or web address] Information not available 06/10/2022 Do you or have you ever used any other forms of tobacco or nicotine? No Information not available 06/10/2022 What is your level of alcohol consumption? None [email or web address] Information not available 06/10/2022 Are you currently employed? No Information not available 05/04/2024 What is your exercise level? Occasional Information not available 05/04/2024 Mental Status Question Answer Note LastModified by Organization D etails LastModified Time Do you feel stressed (tense, restless, nervous, or anxious, or unable to sleep at night)? [id number] Information not available 06/10/2022 Family History Relationship Description Onset Age of this Age Resolved Age Notes LastModified by Organization Details LastModified Time Father Essential hypertension [id number] Not available 04/23/2022 01:12:51 Father Type 2 diabetes mellitus [id number] [id number] Not available 04/23/2022 01:12:51 Father Hyperlipidem ia [id number].279 [id number] Not available 04/23/2022 01:12:51 Father Congestive heart failure [id number] [id number] Not available 04/23/2022 01:12:51 Mother Type 2 diabetes mellitus [id number].238 [id number] Not available 04/23/2022 01:12:51 Mother Alzheimer's disease [id number].366 [id number] Not available 04/23/2022 01:12:51 Mother Disorder of thyroid gland thyroi d nodule MIGRATION.364 [id number] Not available 04/23/2022 01:12:52 Unspecified Relation Type 2 diabetes mellitus BUNNY GS Not available 07/09/2023 16:31:12 Unspecified Relation Arthritis BUNNY GS Not available 07/09/2023 16:31:33 Unspecified Relation Essential hypertension BUNNY GS Not available 07/09/2023 16:31:53 Unspecified Relation Blood coagulation disorder PARENT S AND BUNNY Cristina Not available 07/09/2023 16:32:45 Father Arthritis Not [...] unspecified formulation 3 completed Willard Elam RN null, [place] [facility] [place] [employer] 12/25/2022 16:35:17 Influenza, split virus, quadrivalent, PF 0 completed Not Available [facility] 09/20/2024 11:03:16 COVID-19, mRNA, LNP-S, PF, 30 mcg/0.3 mL dose, benjamin-sucrose 2 completed Not Available [facility] 09/20/2024 11:03:16 Influenza, split virus, quadrivalent, PF 2 completed Not Available [facility] 09/20/2024 11:03:16 Influenza, split virus, trivalent, PF 4 completed Not Available [facility] 09/20/2024 11:03:16 COVID-19, mRNA, LNP-S, PF, benjamin-sucrose, 30 mcg/0.3 mL 4 completed Not Available [facility] 09/20/2024 11:03:16 COVID-19, mRNA, LNP-S, PF, 30 mcg/0.3 mL dose 1 completed Not Available [facility] 04/23/2022 01:41:19 COVID-19, mRNA, LNP-S, PF, 30 mcg/0.3 mL dose 1 completed Not Available [facility] 04/23/2022 01:41:19 Td (adult) 6 completed Not Available [facility] 04/23/2022 01:41:19 Influenza, split virus, quadrivalent, PF 9 completed Not Available [facility] 04/23/2022 01:41:20 Influenza, split virus, quadrivalent, PF 8 completed Not Available [facility] 04/23/2022 01:41:20 Influenza, split virus, quadrivalent, PF 7 completed Not Available [facility] 04/23/2022 01:41:20 Tdap 7 completed Not Available [facility] 04/23/2022 01:41:20 Influenza, split virus, quadrivalent, PF 4 completed Not Available [facility] 04/23/2022 01:41:20 Influenza, split virus, quadrivalent, PF 1 completed Not Available [facility] 04/23/2022 01:41:20 Influenza, split virus, quadrivalent, PF 5 completed Not Available [facility] 04/23/2022 01:41:21 Past Encounters Encounter ID Performer Location Encounter Start Date Encounter Closed Date Diagnosis/Indication Diagnosis SNOMED-CT Code Diagnosis ICD10 Code Diagnosis Note [id number] Martha Brady MD [facility] [address] [place] [address] 05/02/2020 00:00:00 05/13/2020 21:18:58 [id number] Martha Brady MD [facility] [place] [address] [place] [address] 08/02/2020 00:00:00 08/02/2020 14:46:52 [id number] Martha Brady MD [facility] [place] [address] [place] [address] 11/05/2020 00:00:00 11/15/2020 14:27:14 [id number] Martha Brady MD [facility] [place] [address] [place] [address] 05/06/2021 00:00:00 05/13/2021 11:51:[id number] [facility] Primary [facility] [place] [address] [place] [address] 07/16/2021 00:00:00 07/19/2021 10:17:[id number] [facility] Primary [facility] [place] [address] [place] [address] 10/03/2021 00:00:00 10/03/2021 09:07:[id number] [facility] Primary [facility] [place] [address] [place] [address] 11/18/2021 00:00:00 11/19/2021 07:41:24 [id number] PRIYANKA Adames [facility] [place] [address] [place] [address] 06/10/2022 14:49:25 06/10/2022 15:27:44 Adult health examination 699081779 Z00.00 Labs completed 11/18/21, will recheck A1C and Vitamin D. Covid vaccines- recommend boostersFl u vaccine- recommende d each fallTetanu s vaccine- 2017- due 2026 wnlColonos copy- 2017 wnl-repeat 2026Mammog fadi- ordered today Recommende d routine eye exams and dental cleanings. Screening mammography 24 582182 Z12.31 Essential hypertension 42514052 I10 Continue to monitor. Prediabetes 098989977 R7 3.03 Recheck labs.(11/18) A1C 6.0 Vitamin D deficiency 347 51963 E55.9 Recheck labs. Endometrial carcinoma 25 1256911 C54.1 She states she was diagnosed with endometria l cancer in march; she has full hysterecto my/lymph node removal scheduled for June, followed by [facility] (Dr. Crum). She has been started on megestrol and iron. [id number] Martha Brady MD [facility] [address] [facility] [address] [place] [address] 12/16/2022 14:04:24 12/16/2022 14:28:[id number] [facility] Primary Care [facility] [address] [facility] [address] [place] [address] 06/16/2023 14:01:36 06/16/2023 14:57:19 Adult health examination 748575666 Z13.220 colonoscop y 03/25/23 normal repeat 5 years-hx ofmammogra m order givenDEXA normal 2021, repeat 2026Tdap given 2017Did not have chickenpox , no need for shingles vaccineFlu vaccine yearlyCovi d vaccine per cdc recommenda tionssees wheel blocker onc-endome trioid andenocarc inomaCheck fasting labs Screening mammography 24 029530 Z12.31 Endometrial carcinoma 25 4180826 C54.1 Essential hypertension 48503267 I10 Prediabetes 269349150 R7 3.03 Vitamin D deficiency 347 86702 E55.9 Long-term drug therapy 131673704 Z79.899 Pain of mu ltiple joints 54435741 M25.50 Low back pain 167917576 M54.50 Bilateral foot joint pain 9046119237 0631172 M79.671 M79.672 Pain in le ft lower limb 777924242 M79.[id number] [facility] Podiat[facility] [place] [address] [place] [address] [address] [place] [address] 07/09/2023 16:22:36 07/16/2023 15:03:22 Pain in both feet 1498456394 3228730 M79.671 M79.672 obtain xraysobtai n labs from [facility]Ps[facility] indigo shoe gear dailyfollo w up in 1-2 weeks Bilateral foot joint pain 5006166381 8783433 M79.671 M79.672 as above Prediabetes 641074939 R7 3.03 a1c - 6.1Continu e control per PCP recommenda tions [id number] Gustavo John DPM [facility] [place] [address] [place] [address] 07/16/2023 15:24:39 07/17/2023 10:01:36 Pain in both feet 2658460133 7945488 M79.671 M79.672 recommend [employer] orthoticsr ice therapyno strenuous activityed ucated on supportive shoe gearfollow -up in 2 months 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 3107697240 48536 M21.6X1 M21.6X2 x-rays reviewed Bilateral foot joint pain 7556699713 7734803 M79.671 M79.672 as above Localized, primary osteoarthritis of the ankle and/or foot 442311671 M19.079 right 2nd- 3rd tarsometat arsal joint Morbid obesity 110440432 E66.01 recommend weight loss to help joint pain [id number] Gustavo John DPM [facility] [place] [address] [place] [address] 09/17/2023 14:55:16 09/21/2023 11:33:35 Arthritis 1572470 M19.90 Bilateral foot joint pain 1036705495 1102286 M79.671 M79.672 as above [id number] Gustavo John DPM [facility] [place] [address] [place] [address] 11/19/2023 14:32:05 11/23/2023 11:38:46 Pain in both feet 3813036466 0150766 M79.671 M79.672 recommend [employer]r ice therapyno strenuous activityed ucated on supportive shoe gearfollow -up As needed [id number] WIL Vidal [facility] Primary Care [facility] [address] [facility] [place] [address] 05/04/2024 14:47:13 05/04/2024 15:27:12 Essential hypertension 48477151 I10 Vitamin D deficiency 347 08114 E55.9 Hypokalemia 19312881 E87 .6 Hiatal her jefferson with gastroesophageal reflux 748937316 K21.9 Neck pain 27137921 M54.[id number] [facility] Primary Care [address] [place] [address] 07/12/2024 12:00:34 07/12/2024 12:28:02 General examination of patient 133036557 Z00.00 Z13.29 Discussed medication compliance and routine follow up.Discuss ed healthy diet and routine exercise.R radhaiewed vaccine records and made recommenda tions as needed.Enc ouraged annual eye and dental exams, as well as twice yearly dental cleanings. Will check screening labs as listed below. Anemia 243174288 D64.9 Will order labs as listed below. Essential hypertension 54679304 I10 120/74Disc ussed DASH diet and routine exercise.W ill continue HCTZ 25mg daily.Will order labs as listed below. Hiatal her jefferson with gastroesophageal reflux 559174387 K21.9 No concerns at this time. Prediabetes 821584622 R7 3.03 Will check labs as listed below. Vitamin D deficiency 347 79368 E55.9 Will check labs as listed below. Screening mammography 24 943978 Z12.31 Body mass index 40+ - severely obese 859131206 E66.01 Weight: 275 poundsBMI: 47.2Discus sed healthy diet and routine exercise. [id number] WIL Vidal [facility] Primary Care [facility] [address] [facility] [place] [address] 09/20/2024 11:01:03 09/20/2024 11:23:02 Pain in right hand 3980673166 31942 M79.641 Health Concerns Section Related Observation LastModified by Organization Detai ls LastModified Time None Recorded Concern Status LastModified by Organization Details LastModified Time None Recorded Advance Directives Directive None Recorded Payers Insurance Date Sequence Insurance Name Policy Number Policy Hernandez Covered Member ID Hernandez Member ID Guarantor Name 09/17/[address] [facility] ON OR AFTER 08/23/20 (MEDICAID REPLACEMENT - HMO) Luda Leija [id number] Luda Leija 07/12/2024 1 [facility] (MEDICAID REPLACEMENT - HMO) [id number] Luda Leija [id number] Luda Leija OBGyn Episode No OBEpisode recorded.
--- OUTSIDE RECORDS SUMMARY | 2024-09-20 10:58 | XMS_ITS | Clinical Summary ---
Author Organization [facility] Address [address] [place] [address] Care Team Providers Care Field Laboratory Operator Name Role Phone Martha Brady MD Primary Care Provider + Colette Diallo MD Unavailable [phone] Allergies No known active allergies Medications triamcinolone (KENALOG) 0.1 % cream Apply 1 g topically as needed for rash Active potassium chloride ER 20 mEq CR tablet Take 2 tablets (40 mEq total) by mouth engine setter before breakfast Active hydroCHLOROthia zide (HYDRODIURIL) 25 mg tablet Take 1 tablet (25 mg total) by mouth engine setter before breakfast Active ergocalciferol (VITAMIN D) 50,000 [...] 1 tablet/capsule (400 Units total) by mouth engine setter before breakfast Active acetaminophen (TYLENOL) 500 mg [...] s/p RA-TLH/BSO/SLNB 07/08/22 (G2, 01/07 MMI, pMMR, ER+/CT+) S/p VBT 10/09/22 Plan 6.18.25 [] q6mo surveillance Problem Noted Date Diagnosed Date Endometrial cancer 05/28/2022 Cancer Staging:Pathologic:FIGO Stage IB(pT1b, pN0, cM0) - Signed by Moncho Wilson MD PhD on 08/15/2022 Overview (08/10/2024): - Presented with PMB to primary software test manager, s/p D&C 03/2022 with pathology showing well-differentiated endometrioid adenocarcinoma FIGO grade 1 with focal squamous differentiation in a background of atypical hyperplasia (pathology slides reviewed at [facility]) - Previous pelvic US showed uterus measuring 7 x 4 x 5 cm - Pap NILM/HPV neg 04/2021 - Continues to have heavy bleeding, on Provera 20 mg daily - S/p RATLH/BSO/SNLD on 07/08 with pathology: Stage 1B MMRP, ER/CT+ endometrial cancer. AMAN+, [place] nodes negative. - 07/23: Meeting appropriate milestones. 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 Gender Identity Not on file Sexual Orientation Not on file Obstetrics History Last Filed Vital Signs Vital Sign Reading Time Taken Comments Blood Pressure 148/95 08/10/2024 2:33 PM CDT Pulse 95 08/10/2024 2:33 PM CDT Temperature 36.6 C (97.8 F) 08/10/2024 2:33 PM CDT Respiratory Rate 16 04/22/2023 1:09 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 Oxygen Saturation 96% 08/10/2024 2:33 PM CDT Inhaled Oxygen Concentration - - Weight 123.7 kg (272 lb 12.8 oz) 08/10/2024 2:33 PM CDT Height 162.6 cm (5' 4) 08/10/2024 2:33 PM CDT Body Mass Index 46.83 08/10/2024 2:33 PM CDT Plan of Treatment Health Maintenance Due Date Last Done Comments Cervical Cancer Screening 1965 Colon Cancer Screening-Colonoscopy 1965 Depression Screening 1965 Hepatitis C Screening 1965 Hepatitis B Screening 1983 Regular Well Visit/Exam 18-64 1983 Zoster Vaccine (1 of 2) 2015 Breast Cancer Screening-Mammogram 05/09/2022 05/09/2021 Covid-19 Vaccine ( season) 2023 05/14/2021, 05/29/2020, 05/06/2020 Influenza Vaccine (#1) 2024 , 12/05/2021, 11/05/2020, Additional history exists DTaP/Tdap/Td Vaccine (2 - Td or Tdap) 03/11/2026 03/11/2016, 02/24/2005 Pneumococcal vaccine <65 Aged Out No longer eligible based on patient's age to complete this topic Insurance [id number] [place] [address] [facility] Care Teams Field Laboratory Operator Relationship Specialty Start Date End Date Martha Brady MD [address] [place] [address] PCP - General Family Medicine 06/23/22 Colette Diallo MD [address] [place] [address] Radiation Oncologist Radiation Oncology 09/03/22
== END 2024-09-20 10:52 | disposition home or self-care (01) ==
PROVIDERS: PCP Nurse Practitioner Family; Visit Provider Nurse Practitioner Family
DX: M19.041 Primary osteoarthritis, right hand (principal)
CPT/HCPCS: 73130